=== PATIENT | male | born 1950 | race Caucasian/White ===

== ENCOUNTER 2016-11-27 13:20 | Day surgery (SDC) | payer MEDICARE, BC ==
[2016-11-27 14:15] LABS: Glucose,Whole Blood 146 mg/dL (75-99)
[2016-11-27 14:20] VITALS: PULSE 71; TEMP 98.7
[2016-11-27] MEDS ORDERED: IV FLUID CONTINUATION 1,000 ML IV ONE (16:37)
[2016-11-27] MEDS ORDERED: fentaNYL (PF) 50 MCG/ML 2 ML AMP ONE (16:37)
[2016-11-27] MEDS ORDERED: MIDAZOLAM 2 MG/2 ML VIAL ONE (16:37)
[2016-11-27] MEDS ORDERED: PROPOFOL 10 MG/ML 20 ML VIAL IV ONE (16:37)
--- NOTE | 2016-11-27 17:24 | P.PCN ---
Preoperative Diagnosis: Noninvasive program stimulation/noninvasive EP study Indication for procedure Ischemic cardio myopathy history of ventricular tachycardia 380 ms cycle length Dual-chamber ICD interrogated. No new ventricular tachycardia detected Dual-chamber ICD was reprogrammed to VT detection intervals reduced to 161 beats a minute appropriate antitachycardia pacing cardioversion and defibrillation programmed sensitivity is 0.3 mV Under conscious sedation patient underwent noninvasive program stimulation. Ventricular extra stimulation was performed up to double extrastimuli Ventricular ERP's were 600/20/210, 400/250/less than 204 100/550/260 ms. No ventricular tachycardia induced Burst stimulation was performed from 390 ms down to 260 ms no VT induced The device was then reprogrammed Monitor VT at 150 beats a minute, VT detection of 176 beats a minute appropriate antitachycardia pacing cardioversion and defibrillation VF at 214 beats a minute appropriate antitachycardia pacing and defibrillations programmed Patient tolerated the procedure well without any acute complications Anesthesia: MAC Condition: stable Disposition: same day
[2016-11-27 19:10] VITALS: RESP 20
[2016-11-27 19:15] VITALS: BP 107/78
[2016-11-28] MEDS ORDERED: SODIUM CHLORIDE 0.9% 1,000 ML IV SCH (06:00)
== END 2016-11-27 19:10 | disposition home or self-care (01) ==
LOC: CATHEP 13:20
PROVIDERS: ATTEND Internal Medicine Clinical Cardiac Electrophysiology
DX: I47.1 Supraventricular tachycardia (principal); I25.5 Ischemic cardiomyopathy; I48.2 Chronic atrial fibrillation; I10 Essential (primary) hypertension; I25.10 Atherosclerotic heart disease of native coronary artery without angina pectoris; I50.22 Chronic systolic (congestive) heart failure; E07.9 Disorder of thyroid, unspecified; J44.9 Chronic obstructive pulmonary disease, unspecified; E78.5 Hyperlipidemia, unspecified; E11.9 Type 2 diabetes mellitus without complications; I48.92 Unspecified atrial flutter; I49.5 Sick sinus syndrome; I73.9 Peripheral vascular disease, unspecified; Z79.82 Long term (current) use of aspirin; Z79.01 Long term (current) use of anticoagulants; Z79.4 Long term (current) use of insulin; Z79.899 Other long term (current) drug therapy; I25.2 Old myocardial infarction; Z95.0 Presence of cardiac pacemaker
CPT/HCPCS: 93642; 99152; 99153 ×2; J2250; J3010; J2704

== ENCOUNTER → 2017-03-15 | Outpatient (CLI) | payer MEDICARE, BC ==
[2017-03-15 15:54] LABS: Blood Urea Nitrogen 24 mg/dL (9-20)
--- NOTE | 2017-03-15 16:57 | CT ---
EXAMINATION TYPE: CT lumbar spine w con DATE OF EXAM: 03/15/2017 COMPARISON: 12/07/2014 HISTORY: Chronic low suzan k pain. CT DLP: 2010.2 mGycm Automated exposure control for dose reduction was used. CONTRAST: CT scan of the lumbar is performed with IV Contrast, patient injected with 100ml mL of Omnipaque 300. Enhanced CT of the lumbar spine was performed. Bone and soft tissue window settings are submitted as well as coronal and sagittal reconstructions. FINDINGS: There is redemonstration of surgical fusion of the L3-S1 vertebral levels are seen on the prior exam. Again this creates spray artifact and limited surrounding visualization. Vertebral bodies maintain n ormal vertebral body heights and alignment. Small splenule is seen adjacent to the [place] spleen. Moderate calcific atheromatous changes are appr eciated of the abdominal aorta and its branches. Surgical clips are noted within the gallbladder cricket a. L1-L2: There is a broad-based disc bulge and facet arthropathy creating mild bilateral neural foramin al narrowing. No spinal canal stenosis. L2-L3: There is a small broad-based disc bulge and facet arthropathy creating mild bilateral neural f oraminal narrowing. No spinal canal stenosis. L3-S1: Limited evaluation secondary to extensive spray artifact from the metallic hardware. No gross evidence of spinal canal stenosis. IMPRESSION: 1. Postoperative changes from the L3-S1 levels again creating extensive spray artifact and obscuring visualization. 2. At the L1-L3 vertebral levels there is mild degenerative disc disease crating mild bilateral neura l foraminal narrowing with no evidence of spinal canal stenosis. 3. No evidence of acute fracture, vertebral body height loss or malalignment.
== END | disposition home or self-care (01) ==
LOC: RADCTMAIN 14:40
PROVIDERS: ATTEND Family Medicine
DX: M99.73 Connective tissue and disc stenosis of intervertebral foramina of lumbar region (principal); M51.36 Other intervertebral disc degeneration, lumbar region; Z98.890 Other specified postprocedural states
CPT/HCPCS: 82565; 84520; 72132; 36415; Q9967

== ENCOUNTER → 2017-11-26 | Outpatient (CLI) | payer MEDICARE, BC ==
[2017-11-26 15:33] LABS: HCT 49.7 % (39.0-53.0); HGB 15.9 gm/dL (13.0-17.5); MCH 30.2 pg (25.0-35.0); MCHC 32.1 g/dL (31.0-37.0); Mean Platelet Volume 7.7; Platelet Count 270 k/uL (150-450); RBC 5.29 m/uL (4.30-5.90); RDW 13.8 % (11.5-15.5); WBC 11.3 k/uL (3.8-10.6)
== END | disposition home or self-care (01) ==
LOC: LABPAT 14:51
PROVIDERS: ATTEND Internal Medicine Clinical Cardiac Electrophysiology
DX: Z01.812 Encounter for preprocedural laboratory examination (principal); I25.5 Ischemic cardiomyopathy; I50.22 Chronic systolic (congestive) heart failure
CPT/HCPCS: 36415; 80051; 82565; 82947; 84520; 85027

== ENCOUNTER 2017-12-02 14:08 | Day surgery (SDC) | payer MEDICARE, BC ==
[~2017-12-02 14:08] MED LIST: SODIUM CHLORIDE 0.9% 1,000 ML IV SCH; ceFAZolin 1,000 MG in SODIUM CHLORIDE 0.9% IRRIGATIO 250 ML IRRIGATION ONE; ceFAZolin IN SWFI 2 GM/20 ML SYRINGE IVP ONE
[2017-12-02] MEDS ORDERED: LACTATED RINGERS 1,000 ML IV SCH (14:57)
[2017-12-02 15:14] LABS: Glucose,Whole Blood 149 mg/dL (75-99)
[2017-12-02] MEDS ORDERED: PROPOFOL 10 MG/ML 20 ML VIAL IV ONE (18:28)
[2017-12-02] MEDS ORDERED: MIDAZOLAM 2 MG/2 ML VIAL ONE (18:28)
[2017-12-02] MEDS ORDERED: IV FLUID CONTINUATION 400 ML IV ONE (18:28)
[2017-12-02] MEDS ORDERED: fentaNYL (PF) 50 MCG/ML 2 ML AMP ONE (18:28)
[2017-12-02] MEDS ORDERED: LIDOCAINE 1% INJ 10MG/ML (20 ML MDV) ONE ×2 (18:54→19:10)
[2017-12-02] MEDS ORDERED: LIDOCAINE 1% INJ 10MG/ML (20 ML MDV) SQ ONE (19:11)
[2017-12-02] MEDS ORDERED: ACETAMINOPHEN TAB 325 MG TAB PO PRN (20:00)
[2017-12-02] MEDS ORDERED: ACETAMINOPHEN IV (For NPO) 1,000 MG in EMPTY BAG 1 BAG IVPB ONE (20:00)
[2017-12-02] MEDS ORDERED: ALPRAZolam 0.25 MG TAB PO PRN (20:01)
[2017-12-02] MEDS ORDERED: OMALIZUMAB 150 MG VIAL SQ SCH (20:15)
--- NOTE | 2017-12-02 20:30 | PCN ---
PROCEDURE NOTE This is a 67-year-old male patient with known ischemic cardiomyopathy, ejection fraction 35%. Atrial fibrillation, history of ventricular tachycardia requiring ICD therapies and known coronary artery disease, old [place]. His dual-chamber ICD is at [facility] and he is brought in for an ICD generator change and testing. Patient was brought to the EP lab in a fasting state. Written informed consent was obtained prior to the procedure. The left shoulder area was prepped and draped as per protocol. 1% lidocaine was used for local anesthesia. A 4 cm incision was made directly over the previous surgical site and carried down to the level of the generator. The old generator was explanted. This was a Medtronic generator. The leads were interrogated. The new generator was implanted. This was an Evera XDDR DDD Bi V 1 D1. The atrial lead was a Medtronic model #4568, serial number [id number] and the RV lead was Sprint Quattro 6935, serial number [id number]. The RV pacing thresholds were 0.75 V at 0.4 milliseconds, pacing impedance 418 ohms. RV coil impedance 69 ohms. The old generator was explanted. The new generator was placed in the subfascial pocket the wound after partial capsulectomy. The wound was closed in 3 layers and dressed per protocol. The patient was on Xarelto, DFT testing was performed under anesthesia. Shock and T- wave protocol was used to induce ventricular fibrillation. This was adequately and appropriately detected at least sensitivity and successfully internally defibrillated with a 10 joule shock. The charge time was 2 seconds. Shock impedance 70 ohms. The patient tolerated the procedure well without any acute complications. RESULTS: Successful dual-chamber ICD generator change for ICD at [facility] for normal battery depletion with underlying ischemic cardiomyopathy, old myocardial infarction, congestive heart failure class 2 and DFT at or below 10 joules. MMODL / IJN: [id number] /
[2017-12-02 20:52] LABS: Glucose,Whole Blood 98 mg/dL (75-99)
[2017-12-02] MEDS ORDERED: ATORVASTATIN 80 MG TAB PO SCH (21:00)
[2017-12-02] MEDS ORDERED: INSULIN DETEMIR 100 UNIT/ML 10 ML VIAL SQ SCH (21:00)
[2017-12-02 21:16] VITALS: BMI 38.5
[2017-12-02] MEDS: GLIMEPIRIDE 4 MG TAB PO SCH (21:26)
[2017-12-02] MEDS: INSULIN ASPART 100 UNIT/ML 1 ML 10 ML VIAL SQ SCH (21:27)
[2017-12-02] MEDS: GABAPENTIN 100 MG CAP PO SCH (21:27)
[2017-12-02] MEDS: HYDROcodone/APAP 5-325MG 1 EACH TAB PO PRN (23:31)
[2017-12-03 01:04] VITALS: RESP 18
[2017-12-03] MEDS: ceFAZolin IN SWFI 2 GM/20 ML SYRINGE IVP SCH ×4 (03:34→18:01)
[2017-12-03 06:03] LABS: Glucose,Whole Blood 62 mg/dL (75-99)
[2017-12-03 06:28] LABS: Glucose,Whole Blood 91 mg/dL (75-99)
[2017-12-03] MEDS ORDERED: LEVOTHYROXINE 112 MCG TAB PO SCH (06:30)
[2017-12-03] MEDS: metFORMIN 500 MG TAB PO SCH ×2 (06:48→17:43)
[2017-12-03] MEDS: CARVEDILOL 3.125 MG TAB PO SCH ×2 (06:48→17:43)
[2017-12-03] MEDS: GLIMEPIRIDE 4 MG TAB PO SCH (06:48)
[2017-12-03] MEDS: INSULIN ASPART 100 UNIT/ML 1 ML 10 ML VIAL SQ SCH ×3 (08:35→17:52)
[2017-12-03] MEDS: GABAPENTIN 100 MG CAP PO SCH ×2 (08:39→18:08)
[2017-12-03] MEDS: HYDROcodone/APAP 5-325MG 1 EACH TAB PO PRN ×2 (08:42→14:14)
[2017-12-03] MEDS ORDERED: SPIRONOLACTONE 25 MG TAB PO SCH (09:00)
[2017-12-03] MEDS ORDERED: ASPIRIN 81 MG PO SCH (09:00)
[2017-12-03] MEDS ORDERED: DIGOXIN 125 MCG TAB PO SCH (09:00)
[2017-12-03] MEDS ORDERED: PARoxetine 20 MG TAB PO SCH (09:00)
[2017-12-03] MEDS ORDERED: JARDIANCE 25MG PO SCH (09:00)
[2017-12-03] MEDS ORDERED: LISINOPRIL 5 MG TAB PO SCH (09:00)
[2017-12-03 11:40] LABS: Glucose,Whole Blood 162 mg/dL (75-99)
--- NOTE | 2017-12-03 15:30 | P.DS ---
Providers Attending physician: Danilo Angela Primary care physician: [facility] Course: Patient is doing well from a chronic standpoint. He denies any chest discomfort there is minimal tenderness over the ICD generator site. No bruising minimal oozing and soakage No hematoma On examination Blood pressure 128/88 mmHg pulse rate in the 60s afebrile Breath sounds are clear no rhonchi no crackles Heart sounds are normal no murmurs or gallops or rub line no lower extremity edema Impression Ischemic cardio myopathy, old myocardial infarction, severe LV dysfunction, congestive heart failure class II, permanent atrial fibrillation, status post ICD generator change yesterday Plan Patient may go home after completion of IV antibodies and follow-up in the device clinic in 5 days and follow with me in about 4-6 months Plan - Discharge Summary Discharge Rx Participant: No New Discharge Prescriptions: No Action RX: metFORMIN HCL 1,000 mg PO AC-BID RX: Levothyroxine Sodium [Synthroid] 112 mcg PO DAILY RX: ALPRAZolam [Xanax] 0.25 mg PO BID PRN PRN Reason: Anxiety RX: Aspirin EC [Ecotrin Low Dose] 81 mg PO DAILY RX: Atorvastatin [Lipitor] 80 mg PO HS tab RX: Digoxin [Lanoxin] 125 mcg PO DAILY tab RX: Nitroglycerin Sl Tabs [Nitrostat] 0.4 mg SUBLINGUAL Q5M PRN #0 tab PRN Reason: Chest Pain RX: PARoxetine [Paxil] 20 mg PO DAILY tab RX: Rivaroxaban [Xarelto] 20 mg PO W/SUPPER tab RX: Spironolactone [Aldactone] 12.5 mg PO DAILY tab Lisinopril [Zestril] 5 mg PO DAILY Omalizumab [Xolair] 225 mg SQ DIRECTED Insulin Glargine,Hum.rec.anlog [[place] Solostar] 44 units SQ HS Stiloto 2 sprays NASAL DAILY Empagliflozin [Jardiance] 25 mg PO DAILY RX: HYDROcodone/APAP 10-325MG [[place] 10-325] 1 tab PO Q4-6H PRN PRN Reason: Pain RX: Carvedilol [Coreg] 3.125 mg PO ONCE Gabapentin [Neurontin] 100 mg PO TID Super B 1 tab PO DAILY Insulin Aspart [Novolog] 17 unit SQ QID Glimepiride [Amaryl] 4 mg PO BID Discharge Medication List RX: Levothyroxine Sodium [Synthroid] 112 mcg PO DAILY 06/29/13 [History] RX: metFORMIN HCL 1,000 mg PO AC-BID 06/29/13 [History] RX: ALPRAZolam [Xanax] 0.25 mg PO BID PRN 04/13/14 [History] RX: Aspirin EC [Ecotrin Low Dose] 81 mg PO DAILY 09/29/15 [History] RX: Atorvastatin [Lipitor] 80 mg PO HS tab 10/04/15 [Rx] RX: Digoxin [Lanoxin] 125 mcg PO DAILY tab 10/04/15 [Rx] RX: Nitroglycerin Sl Tabs [Nitrostat] 0.4 mg SUBLINGUAL Q5M PRN #0 tab 10/04/15 [Rx] RX: PARoxetine [Paxil] 20 mg PO DAILY tab 10/04/15 [Rx] RX: Rivaroxaban [Xarelto] 20 mg PO W/SUPPER tab 10/04/15 [Rx] RX: Spironolactone [Aldactone] 12.5 mg PO DAILY tab 10/04/15 [Rx] Lisinopril [Zestril] 5 mg PO DAILY 12/20/15 [History] Omalizumab [Xolair] 225 mg SQ DIRECTED 01/17/16 [History] Insulin Glargine,Hum.rec.anlog [[place] Solostar] 44 units SQ HS 04/10/16 [ History] Stiloto 2 sprays NASAL DAILY 04/10/16 [History] Empagliflozin [Jardiance] 25 mg PO DAILY 04/24/16 [History] RX: HYDROcodone/APAP 10-325MG [[place] 10-325] 1 tab PO Q4-6H PRN 10/23/16 [ History] RX: Carvedilol [Coreg] 3.125 mg PO ONCE 11/27/16 [History] Gabapentin [Neurontin] 100 mg PO TID 08/13/17 [History] Super B 1 tab PO DAILY 08/13/17 [History] Glimepiride [Amaryl] 4 mg PO BID 11/26/17 [History] Insulin Aspart [Novolog] 17 unit SQ QID 11/26/17 [History]
[2017-12-03 15:50] VITALS: BP 123/76; PULSE 67; TEMP 98.2
[2017-12-03 17:08] LABS: Glucose,Whole Blood 136 mg/dL (75-99)
[2017-12-03] MEDS ORDERED: RIVAROXABAN 10 MG TAB PO SCH (17:30)
== END 2017-12-03 18:34 | disposition home or self-care (01) ==
LOC: CATHEP 14:08 → 3SCARD 19:43 → CATHEP 12-03 18:34
PROVIDERS: ATTEND Internal Medicine Clinical Cardiac Electrophysiology
DX: I25.5 Ischemic cardiomyopathy (principal); I25.10 Atherosclerotic heart disease of native coronary artery without angina pectoris; I11.0 Hypertensive heart disease with heart failure; I50.22 Chronic systolic (congestive) heart failure; E78.5 Hyperlipidemia, unspecified; E11.51 Type 2 diabetes mellitus with diabetic peripheral angiopathy without gangrene; I48.2 Chronic atrial fibrillation; I25.2 Old myocardial infarction; I49.5 Sick sinus syndrome; Z79.01 Long term (current) use of anticoagulants; Z79.82 Long term (current) use of aspirin; Z79.4 Long term (current) use of insulin; Z79.899 Other long term (current) drug therapy
CPT/HCPCS: 93641; 33263; C1721; J0690 ×3; J2001; J0131

== ENCOUNTER 2018-01-27 12:55 | Emergency (ER) | payer OTHER, MEDICARE, BC ==
[2018-01-27 13:25] VITALS: BP 132/90; PULSE 82; RESP 18; TEMP 98.2
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
== END 2018-01-27 15:15 | disposition home or self-care (01) ==
LOC: EC 12:55
DX: S62.307A Unspecified fracture of fifth metacarpal bone, left hand, initial encounter for closed fracture (principal); J44.9 Chronic obstructive pulmonary disease, unspecified; I11.0 Hypertensive heart disease with heart failure; I50.9 Heart failure, unspecified; E11.9 Type 2 diabetes mellitus without complications; E03.9 Hypothyroidism, unspecified; I25.2 Old myocardial infarction; F41.9 Anxiety disorder, unspecified; Z79.4 Long term (current) use of insulin; Z79.82 Long term (current) use of aspirin; Z79.899 Other long term (current) drug therapy; Z95.0 Presence of cardiac pacemaker; V43.52XA Car driver injured in collision with other type car in traffic accident, initial encounter; Y92.410 Unspecified street and highway as the place of occurrence of the external cause
CPT/HCPCS: 29125; 99284

== ENCOUNTER → 2019-03-31 | Outpatient (CLI) | payer MEDICARE, BC | LOC: LABWHC1 12:28 | PROVIDERS: ATTEND Nurse Practitioner Adult Health | DX: Z51.81 Encounter for therapeutic drug level monitoring (principal); I48.21 Permanent atrial fibrillation | CPT/HCPCS: 36415; 80162 ==

== ENCOUNTER 2019-07-30 05:58 | Day surgery (SDC) | payer MEDICARE, BC ==
[2019-07-29 09:21] VITALS: BMI 39.8
[2019-07-30] MEDS ORDERED: SODIUM CHLORIDE 0.9% 1,000 ML IV SCH (06:12)
[2019-07-30 06:51] LABS: Glucose,Whole Blood 138 mg/dL (75-99)
[2019-07-30 07:11] VITALS: BP 146/68; PULSE 67; RESP 16; TEMP 99
[2019-07-30] MEDS ORDERED: SODIUM CHLORIDE 0.9% 500 ML 500 ML IV ONE (07:23)
[2019-07-30] MEDS ORDERED: IOPAMIDOL-250 50ML BTL IV ONE ×2 (07:32)
[2019-07-30 07:58] LABS: HCT 43.4 % (39.0-53.0); HGB 14.4 gm/dL (13.0-17.5); MCH 31.4 pg (25.0-35.0); MCHC 33.1 g/dL (31.0-37.0); MCV 94.9 fL (80.0-100.0); Mean Platelet Volume 8.9; Platelet Count 267 k/uL (150-450); RBC 4.57 m/uL (4.30-5.90); RDW 13.4 % (11.5-15.5); WBC 11.1 k/uL (3.8-10.6)
--- NOTE | 2019-07-30 08:03 | P.PCN ---
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 It appears that there is flow of dye past the stenosis especially superior to the leads and it may be possible to access the central circulation via this route Undoubtedly venoplasty will have to be performed to place and LV lead sheath Right upper extremity venogram 10 cc of IV dye injected and mild stenosis noted at the junction of the axillary innominate vein Patent SVC Cinefluoroscopy of the leads and the generator performed Patient has an old RV pacing lead which is appended He is a dual-chamber ICD system. ICD lead in the septum Atrial lead in stable position No fractures or breaks noted Plan Upgrade to a biventricular system Attempt access via the left side If successful venoplasty to follow Placed either His bundle lead or pacing lead in the LV If this fails then right-sided LV/His bundle lead placement Tunnel the lead across the chest anteriorly to the left side Generator placed in the left side
[2019-07-30 08:17] LABS: African American GFR (CKD) >90 (>60 ml/min/1.73 sqM); Anion Gap 10 mmol/L; Blood Urea Nitrogen 21 mg/dL (9-20); Calcium 9.3 mg/dL (8.4-10.2); Carbon Dioxide 23 mmol/L (22-30); Chloride 108 mmol/L (98-107); Cholesterol 181 mg/dL (<200); Glucose 144 mg/dL (74-99); HDL Cholesterol 39 mg/dL (40-60); LDL Cholesterol,Calculated 112 mg/dL (0-99); Non-African American GFR(CKD) 79 (>60 ml/min/1.73 sqM); Potassium 4.6 mmol/L (3.5-5.1); Sodium 141 mmol/L (137-145); Triglycerides 151 mg/dL (<150)
== END 2019-07-30 09:05 | disposition home or self-care (01) ==
LOC: CATHEP 05:58
PROVIDERS: ATTEND Internal Medicine Clinical Cardiac Electrophysiology
DX: I87.1 Compression of vein (principal); I25.5 Ischemic cardiomyopathy; I44.2 Atrioventricular block, complete; I25.10 Atherosclerotic heart disease of native coronary artery without angina pectoris; I50.22 Chronic systolic (congestive) heart failure; I11.0 Hypertensive heart disease with heart failure; I49.5 Sick sinus syndrome; I73.9 Peripheral vascular disease, unspecified; I25.2 Old myocardial infarction; E11.9 Type 2 diabetes mellitus without complications; E78.5 Hyperlipidemia, unspecified; Z79.82 Long term (current) use of aspirin; Z79.02 Long term (current) use of antithrombotics/antiplatelets; Z79.4 Long term (current) use of insulin; Z79.890 Hormone replacement therapy; Z79.01 Long term (current) use of anticoagulants; Z79.899 Other long term (current) drug therapy; I48.21 Permanent atrial fibrillation; Z95.810 Presence of automatic (implantable) cardiac defibrillator
CPT/HCPCS: 36005; 75820; 80061; 80048; 84443; 82607; 85027; 82306; Q9966

== ENCOUNTER 2019-08-25 05:42 | Day surgery (SDC) | payer MEDICARE, BC ==
[2019-08-19 17:36] VITALS: BMI 39.8
[~2019-08-25 05:42] MED LIST changes: -ceFAZolin 1,000 MG in SODIUM CHLORIDE 0.9% IRRIGATIO 250 ML IRRIGATION ONE; -ceFAZolin IN SWFI 2 GM/20 ML SYRINGE IVP ONE
[2019-08-25] MEDS ORDERED: VANCOMYCIN 1,000 MG in SODIUM CHLORIDE 0.9% 250 ML IVPB ONE (06:00)
[2019-08-25] MEDS ORDERED: SODIUM CHLORIDE 0.9% 1,000 ML IV SCH (06:00)
[2019-08-25] MEDS ORDERED: ceFAZolin 1,000 MG in SODIUM CHLORIDE 0.9% IRRIGATIO 250 ML IRRIGATION ONE (06:00)
[2019-08-25 06:16] LABS: Glucose,Whole Blood 165 mg/dL (75-99)
[2019-08-25] MEDS ORDERED: LIDOCAINE 1% INJ 10MG/ML (20 ML MDV) ONE ×2 (08:25→08:51)
[2019-08-25] MEDS ORDERED: LIDOCAINE 1% INJ 10MG/ML (20 ML MDV) SQ ONE (08:45)
[2019-08-25] MEDS ORDERED: ACETAMINOPHEN IV (For NPO) 1,000 MG in EMPTY BAG 1 BAG IVPB ONE (10:28)
[2019-08-25] MEDS ORDERED: ACETAMINOPHEN TAB 325 MG TAB PO PRN (10:28)
--- NOTE | 2019-08-25 10:48 | P.PRLE ---
RE: Jnoathan Escobar Dear Morales Jonathan Escobar underwent upgrade to a biventricular ICD for cardio myopathy, ischemic, with worsening systolic congestive heart failure increasing RV pacing percentage well above 40% despite medical treatment I will now increase his metoprolol succinate to 50 mg twice daily and change lisinopril timing to noontime He will continue all his other medications including xarelto Thank you for entrusting me with the care of the patient Warm regards Sincerely Danilo Angela
--- NOTE | 2019-08-25 10:53 | P.DS ---
Providers Attending physician: Danilo Angela Primary care physician: [facility] Course: Patient underwent upgrade to a biventricular ICD successfully A Metronic biventricular ICD was implanted, IV vancomycin and IV Kefzol given Medtronic model #3830 was implanted, excellent thresholds and narrowing of the QRS, selective He has underlying ischemic cardiomyopathy ejection fraction between 40-45% Worsening systolic congestive heart failure Increasing RV pacing percentage between 40-70% at least Underlying persistent atrial fibrillation On guideline directed medical treatment Plan IV antibiotics Chest x-ray Device interrogation and discharge home later today Follow up on Saturday in the office Plan - Discharge Summary New Discharge Prescriptions: New Metoprolol Succinate [Toprol XL] 50 mg PO BID #180 tab Discontinued Metoprolol Tartrate [Lopressor] 50 mg PO DAILY No Action metFORMIN HCL 1,000 mg PO AC-BID Levothyroxine Sodium [Synthroid] 112 mcg PO DAILY ALPRAZolam [Xanax] 0.25 mg PO BID PRN PRN Reason: Anxiety Aspirin EC [Ecotrin Low Dose] 81 mg PO DAILY Atorvastatin [Lipitor] 80 mg PO HS tab Nitroglycerin Sl Tabs [Nitrostat] 0.4 mg SUBLINGUAL Q5M PRN #0 tab PRN Reason: Chest Pain PARoxetine [Paxil] 20 mg PO DAILY tab Rivaroxaban [Xarelto] 20 mg PO W/SUPPER tab Spironolactone [Aldactone] 12.5 mg PO DAILY tab Lisinopril [Zestril] 5 mg PO DAILY Omalizumab [Xolair] 225 mg SQ Q14D Stiloto 2 sprays NASAL DAILY HYDROcodone/APAP 10-325MG [[place] 10-325] 1 tab PO QID Gabapentin [Neurontin] 100 mg PO TID Insulin Glargine,Hum.rec.anlog [Basaglar Kwikpen U-100] 44 unit SQ HS Digoxin [Digitek] 125 mcg PO DAILY Glimepiride [Amaryl] 4 mg PO BID INSULIN LISPRO (humaLOG) [humaLOG] 17 units SQ AC-TID Discharge Medication List Levothyroxine Sodium [Synthroid] 112 mcg PO DAILY 06/29/13 [History] metFORMIN HCL 1,000 mg PO AC-BID 06/29/13 [History] ALPRAZolam [Xanax] 0.25 mg PO BID PRN 04/13/14 [History] Aspirin EC [Ecotrin Low Dose] 81 mg PO DAILY 09/29/15 [History] Atorvastatin [Lipitor] 80 mg PO HS tab 10/04/15 [Rx] Nitroglycerin Sl Tabs [Nitrostat] 0.4 mg SUBLINGUAL Q5M PRN #0 tab 10/04/15 [Rx] PARoxetine [Paxil] 20 mg PO DAILY tab 10/04/15 [Rx] Rivaroxaban [Xarelto] 20 mg PO W/SUPPER tab 10/04/15 [Rx] Spironolactone [Aldactone] 12.5 mg PO DAILY tab 10/04/15 [Rx] Lisinopril [Zestril] 5 mg PO DAILY 12/20/15 [History] Omalizumab [Xolair] 225 mg SQ Q14D 01/17/16 [History] Stiloto 2 sprays NASAL DAILY 04/10/16 [History] HYDROcodone/APAP 10-325MG [[place] 10-325] 1 tab PO QID 10/23/16 [History] Gabapentin [Neurontin] 100 mg PO TID 08/13/17 [History] Digoxin [Digitek] 125 mcg PO DAILY 07/29/19 [History] Glimepiride [Amaryl] 4 mg PO BID 07/29/19 [History] Insulin Glargine,Hum.rec.anlog [Basaglar Kwikpen U-100] 44 unit SQ HS 07/29/19 [History] INSULIN LISPRO (humaLOG) [humaLOG] 17 units SQ AC-TID 08/19/19 [History] Metoprolol Succinate [Toprol XL] 50 mg PO BID #180 tab 08/25/19 [Rx] Follow up Appointment(s)/Referral(s): Danilo Angela MD [STAFF PHYSICIAN] - 1 Week (Device clinic follow-up this Saturday Follow Dr. Angela in 3 months) Activity/Diet/Wound Care/Special Instructions: PATIENT EDUCATION MATERIAL Instructions following a heart rhythm device implant. 1. Keep dressing DRY for 5 DAYS. You may cover the area with Saran or Cling Wrap, prior to a shower. 2. The dressing will be removed in the Device Clinic at [facility]. Absorbable sutures were used to close the wound. 3. Avoid raising the left arm above the shoulder level. 4 week restriction 4. Avoid arm movements, like backscratching, rubbing the head, or pulling on a cord. 4 weeks restriction 5. Gentle range of motion movements of the shoulder, closest to the incision should be performed to avoid a frozen shoulder. (Pendulum exercises of the shoulder) 6. The opposite arm may be used freely. 7. Avoid driving for 7 days. 8. Avoid activities such as golfing, swimming, weed whacking, lifting more than 10 pounds weight, bowling, gymnastics and weight training/lifting. (6 weeks restriction) 9. Activities such as wood chopping with an axe, pull-ups in the gymnasium, power lifting, arc-welding, being close to home induction cooktops will always be a problem. 10. Arm sling is only a reminder not to raise the arm above the head. You do not need to keep the arm completely immobilized. Your free to move the arm and use it and for normal activities. In case of any problems, please call [facility], [place], @ [phone], Attention: Device Clinic Device clinic follow-up in 5 days Follow-up with primary relations specialist, Dr. Angela in 3 months
[2019-08-25 11:02] LABS: Glucose,Whole Blood 148 mg/dL (75-99)
[2019-08-25 11:37] VITALS: RESP 14; TEMP 97.9
[2019-08-25] MEDS: INSULIN ASPART (NovoLOG) 100 UNIT/ML VIAL SQ SCH ×2 (11:41→17:31)
--- NOTE | 2019-08-25 12:34 | PCN ---
PROCEDURE NOTE Mr. Escobar is a 69-year-old male patient who has ischemic cardiomyopathy with worsening systolic congestive heart failure despite medical treatment. He has underlying persistent atrial fibrillation. His RV pacing percentage is increasing well above 40% and is closer to 70%. A venogram was previously performed and showed some patency of the left axillary vein. He is brought to the EP lab in a fasting state. Written informed consent was obtained prior to the procedure. The entire chest was prepared for either a left-sided or right- sided axillary approach to implant the biventricular lead. The left side was started first. An incision was made about 4 cm and carried down to the level of the capsule. Partial capsulectomy was performed. The device was explanted and the axillary vein access was performed. The lateral axillary vein access was performed and the angioplasty wire was placed via this vein into the right atrium and IVC. Following that, a short sheath was placed and thereafter a long sheath. A Medtronic model 3830 lead, 69 cm in length and serial #[id number] was placed and selective capture was noted between 4 and 5 V at 1 millisecond while nonselective capture at further high outputs. The lead was screwed in and the sheath was removed. The threshold for loss of selective capture was 1.3 V at 1 millisecond. R waves 1.8 millisecond, 1.8 mV and pacing impedance 589 ohms. The RV lead was interrogated. The R-waves 13.6 mV, pacing impedance 456 ohms, pacing threshold 0.75 V at 0.4 milliseconds. The new generator was implanted. This was a Medtronic biventricular ICD model #DTMBD1, serial #[id number]. The lead and generator were then placed in subfascial pocket. The wound was closed in three layers and dressed per protocol. RESULT: Successful upgrade to a biventricular ICD for management of heart failure symptoms, in the setting of ischemic cardiomyopathy, ejection fraction 40%-45% with worsening RV pacing percentage well above 40% despite guideline-directed medical treatment. Selective capture was noted with excellent threshold at 1.3 V at 1 millisecond and normalization of the QRS. The device was programmed for LV port pacing with selective capture, appropriate antitachycardia pacing cardioversion defibrillations were programmed for VT and VF therapy. Successful upgrade to a biventricular ICD with selective pacing and normalization of the QRS. MMODL / IJN: [id number] /
[2019-08-25 14:57] VITALS: BP 136/74; PULSE 62
--- NOTE | 2019-08-25 15:41 | XR ---
EXAMINATION TYPE: XR chest 2V DATE OF EXAM: 08/25/2019 COMPARISON: 09/30/2015 INDICATION: Lead placement check TECHNIQUE: Frontal and lateral views of the chest are obtained. FINDINGS: The heart size is normal. The pulmonary vasculature is normal. The lungs are clear. No pneumothorax is evident. Pacemaker lead has been placed adjacent to prior IMPRESSION: 1. No pneumothorax post lead revision.
[2019-08-25] MEDS ORDERED: GABAPENTIN 100 MG CAP PO SCH (16:00)
[2019-08-25 16:59] LABS: Glucose,Whole Blood 280 mg/dL (75-99)
[2019-08-25] MEDS ORDERED: metFORMIN 500 MG TAB PO SCH (17:30)
[2019-08-25] MEDS ORDERED: RIVAROXABAN 20 MG TAB PO SCH (17:30)
[2019-08-25] MEDS ORDERED: ATORVASTATIN 80 MG TAB PO SCH (21:00)
[2019-08-25] MEDS ORDERED: INSULIN DETEMIR (LEVEMIR) 100 UNIT/ML SYR SQ SCH (21:00)
[2019-08-25] MEDS ORDERED: GLIMEPIRIDE 4 MG TAB PO SCH (21:00)
[2019-08-26] MEDS ORDERED: LEVOTHYROXINE 112 MCG TAB PO SCH (06:30)
[2019-08-26] MEDS ORDERED: PARoxetine 20 MG TAB PO SCH (09:00)
[2019-08-26] MEDS ORDERED: ASPIRIN 81 MG PO SCH (09:00)
[2019-08-26] MEDS ORDERED: DIGOXIN 125 MCG TAB PO SCH (09:00)
[2019-08-26] MEDS ORDERED: SPIRONOLACTONE 25 MG TAB PO SCH (09:00)
[2019-08-26] MEDS ORDERED: lisinopriL 5 MG TAB PO SCH (09:00)
[2019-09-01] MEDS ORDERED: OMALIZUMAB SQ SCH (09:00)
== END 2019-08-25 18:40 | disposition home or self-care (01) ==
LOC: CATHEP 05:42 → 1SOBS 11:05 → CATHEP 18:40
PROVIDERS: ATTEND Internal Medicine Clinical Cardiac Electrophysiology
DX: I48.21 Permanent atrial fibrillation (principal); I25.5 Ischemic cardiomyopathy; I49.5 Sick sinus syndrome; I25.10 Atherosclerotic heart disease of native coronary artery without angina pectoris; I34.0 Nonrheumatic mitral (valve) insufficiency; I11.0 Hypertensive heart disease with heart failure; I50.22 Chronic systolic (congestive) heart failure; I25.2 Old myocardial infarction; I47.1 Supraventricular tachycardia; I73.9 Peripheral vascular disease, unspecified; J44.9 Chronic obstructive pulmonary disease, unspecified; E11.9 Type 2 diabetes mellitus without complications; E78.5 Hyperlipidemia, unspecified; Z86.73 Personal history of transient ischemic attack (TIA), and cerebral infarction without residual deficits; Z79.4 Long term (current) use of insulin; Z79.01 Long term (current) use of anticoagulants; Z79.82 Long term (current) use of aspirin; Z79.890 Hormone replacement therapy; Z79.899 Other long term (current) drug therapy
CPT/HCPCS: 33249; 33225; 71046; C1769 ×2; C1892; C1898; C1882; J3370; J0690 ×2; J2001

== ENCOUNTER → 2020-02-01 | Outpatient (CLI) | payer MEDICARE, BC ==
--- NOTE | 2020-02-01 12:11 | US ---
EXAMINATION TYPE: US venous doppler duplex LE RT DATE OF EXAM: 02/01/2020 11:58 AM COMPARISON: NONE CLINICAL HISTORY: M79.661 pain in RLL. SIDE PERFORMED: Right TECHNIQUE: The lower extremity deep venous system is examined utilizing real time linear array sonog abena with graded compression, doppler sonography and color-flow sonography. VESSELS IMAGED: Common Femoral Vein Deep Femoral Vein Greater Saphenous Vein * Femoral Vein Popliteal Vein Small Saphenous Vein * (* superficial vessels) Right Leg: Negative for DVT IMPRESSION: No evidence for DVT at this time.
== END | disposition home or self-care (01) ==
LOC: RADUSWWP 11:31
PROVIDERS: ATTEND Family Medicine
DX: M79.661 Pain in right lower leg (principal)

== ENCOUNTER 2020-06-20 09:43 | Day surgery (SDC) | payer MEDICARE, BC ==
[~2020-06-20 09:43] MED LIST changes: +LIDOCAINE 1% (10MG/ML) FOR IV START INTRADERMA PRN; -SODIUM CHLORIDE 0.9% 1,000 ML IV SCH
[2020-06-20 10:34] VITALS: TEMP 97.2
[2020-06-20] MEDS: LACTATED RINGERS 1,000 ML IV SCH ×2 (10:42→11:34)
[2020-06-20] MEDS ORDERED: PROPOFOL 10 MG/ML 20 ML VIAL IV ONE (11:36)
[2020-06-20] MEDS ORDERED: LIDOCAINE 1% INJ 10MG/ML (20 ML MDV) ONE (11:36)
--- NOTE | 2020-06-20 11:57 | P.PCN ---
Date of Procedure: 06/20/20 Procedure(s) Performed: BRIEF HISTORY: Patient is a 69-year-old pleasant 8 male scheduled for an elective colonoscopy as a part of positive cologuard. PROCEDURE PERFORMED: Colonoscopy and polypectomy. PREOPERATIVE DIAGNOSIS: Positive cologuard. IV sedation per Anesthesia. PROCEDURE: After informed consent was obtained, the patient, was brought into the endoscopy unit. IV sedation was administered by Anesthesia under continuous monitoring. Digital rectal examination was normal. Initially the Olympus CF-160 flexible video colonoscope was then inserted in the rectum, gradually advanced into the cecum without any difficulty. Careful examination was performed as the scope was gradually being withdrawn. Ileocecal valve and the appendiceal orifice were visualized and appeared normal. Prep was excellent. Mucosa of the cecum, ascending colon, transverse colon, was normal. In the descending colon there was a 1 cm polyp removed by snare polypectomy. Rest of the descending colon, sigmoid colon, and rectum appeared normal. The proximal rectum there was a 1 m polyp removed by snare polypectomy. Retroflexion was performed in the rectum and no lesions were seen. The patient tolerated the procedure well. IMPRESSION: 1 cm descending colon polyp status post polypectomy 1 cm rectal polyp status post polypectomy RECOMMENDATIONS: Findings of this examination were discussed with the patient as well as his family. Was advised to follow with the biopsy results. If the biopsy shows an adenoma he can have a repeat colonoscopy in 3 years.
[2020-06-20 12:00] VITALS: PULSE 83
[2020-06-20 12:21] VITALS: BP 166/80; RESP 20
== END 2020-06-20 12:25 | disposition home or self-care (01) ==
LOC: ORWHC2ENDO 09:43
PROVIDERS: ATTEND Internal Medicine Gastroenterology
DX: D12.2 Benign neoplasm of ascending colon (principal); K62.1 Rectal polyp; R19.5 Other fecal abnormalities; I25.2 Old myocardial infarction; I11.0 Hypertensive heart disease with heart failure; I50.9 Heart failure, unspecified; E78.5 Hyperlipidemia, unspecified; E11.9 Type 2 diabetes mellitus without complications; E07.9 Disorder of thyroid, unspecified; Z86.73 Personal history of transient ischemic attack (TIA), and cerebral infarction without residual deficits; Z79.01 Long term (current) use of anticoagulants; Z79.82 Long term (current) use of aspirin; Z79.84 Long term (current) use of oral hypoglycemic drugs; Z79.899 Other long term (current) drug therapy; Z95.0 Presence of cardiac pacemaker
CPT/HCPCS: 88305; 45385; J2001; J2704

== ENCOUNTER → 2020-06-23 | Day surgery (SDC) | payer MEDICARE, BC ==
[2020-06-22 10:35] VITALS: BMI 39.1
[~2020-06-23] MED LIST changes: +IOPAMIDOL-370 50ML BTL INJ ONE; -LIDOCAINE 1% (10MG/ML) FOR IV START INTRADERMA PRN; +SODIUM CHLORIDE 0.9% 1,000 ML IV SCH; +SODIUM CHLORIDE 0.9% 500 ML 500 ML IV ONE
[2020-06-23 06:41] VITALS: RESP 16; TEMP 97.8
[2020-06-23 06:44] LABS: Glucose,Whole Blood 142 mg/dL (75-99)
--- NOTE | 2020-06-23 07:44 | P.EPPROC ---
- EP Procedure Note Electrophysiology Procedure Note: Diagnosis Recent non-capture of the His bundle lead Patient has a BiV ICD. His bundle lead was implanted in August 2019 Cinefluoroscopy of the leads Complete dislodgment of the His bundle lead Left upper extremity venogram Patent extrathoracic axillary vein with mild stenosis in the axillary SVC junction there is passage of dye across Impression Late dislodgment of the His bundle lead Plan Extraction of the His bundle lead and placement of an LV lead
[2020-06-23 08:06] VITALS: BP 152/73; PULSE 68
== END | disposition home or self-care (01) ==
LOC: CATHEP 06:05
PROVIDERS: ATTEND Internal Medicine Clinical Cardiac Electrophysiology
DX: T82.110A Breakdown (mechanical) of cardiac electrode, initial encounter (principal); I25.10 Atherosclerotic heart disease of native coronary artery without angina pectoris; I25.5 Ischemic cardiomyopathy; I48.19 Other persistent atrial fibrillation; Z20.822 Contact with and (suspected) exposure to COVID-19; E11.9 Type 2 diabetes mellitus without complications; I11.0 Hypertensive heart disease with heart failure; I50.22 Chronic systolic (congestive) heart failure; E78.5 Hyperlipidemia, unspecified; I25.2 Old myocardial infarction; I34.0 Nonrheumatic mitral (valve) insufficiency; M79.89 Other specified soft tissue disorders; R53.82 Chronic fatigue, unspecified; Z79.82 Long term (current) use of aspirin; Z79.4 Long term (current) use of insulin; Z79.899 Other long term (current) drug therapy
CPT/HCPCS: 36005; 75820; 87635; Q9967

== ENCOUNTER 2020-06-30 09:16 | Day surgery (SDC) | payer MEDICARE, BC ==
[2020-06-29 10:46] VITALS: BMI 41.1
[~2020-06-30 09:16] MED LIST changes: -IOPAMIDOL-370 50ML BTL INJ ONE; -SODIUM CHLORIDE 0.9% 500 ML 500 ML IV ONE; +VANCOMYCIN 2,000 MG in SODIUM CHLORIDE 0.9% 500 ML 500 ML IVPB PRN; +ceFAZolin 1 GM in SODIUM CHLORIDE 0.9% 250 ML IRRIGATION PRN
[2020-06-30 09:41] LABS: Glucose,Whole Blood 202 mg/dL (75-99)
[2020-06-30 10:02] LABS: Basophils # (A) 0.1 k/uL (0-0.2); Basophils % (A) 1 %; Eosinophils # (A) 0.2 k/uL (0-0.7); Eosinophils % (A) 1 %; HCT 42.3 % (39.0-53.0); Lymphocytes # (A) 2.4 k/uL (1.0-4.8); Lymphocytes % (A) 17 %; MCH 31.5 pg (25.0-35.0); MCHC 33.2 g/dL (31.0-37.0); MCV 94.9 fL (80.0-100.0); Mean Platelet Volume 8.5; Monocytes # (A) 0.7 k/uL (0-1.0); Monocytes % (A) 5 %; Neutrophils # (A) 10.9 k/uL (1.3-7.7); Neutrophils % (A) 75 %; Platelet Count 293 k/uL (150-450); RBC 4.45 m/uL (4.30-5.90); WBC 14.4 k/uL (3.8-10.6)
[2020-06-30 11:07] LABS: African American GFR (CKD) >90 (>60 ml/min/1.73 sqM); Anion Gap 4 mmol/L; Blood Urea Nitrogen 19 mg/dL (9-20); Calcium 8.8 mg/dL (8.4-10.2); Carbon Dioxide 25 mmol/L (22-30); Chloride 107 mmol/L (98-107); Glucose 206 mg/dL (74-99); Non-African American GFR(CKD) 82 (>60 ml/min/1.73 sqM); Sodium 136 mmol/L (137-145)
[2020-06-30 11:17] LABS: Potassium 5.7 mmol/L (3.5-5.1)
[2020-06-30] MEDS: INSULIN ASPART (NovoLOG) 100 UNIT/ML VIAL SQ SCH ×4 (11:33→20:51)
[2020-06-30] MEDS ORDERED: ETOMIDATE 2 MG/ML 10 ML VIAL ONE ×2 (13:41→14:12)
[2020-06-30] MEDS ORDERED: LIDOCAINE 1% INJ 10MG/ML (20 ML MDV) ONE ×2 (13:41→14:25)
[2020-06-30] MEDS ORDERED: PHENYLEPHRINE-0.9% NACL SYG 1,000 MCG/10 ML SYRINGE ONE (13:41)
[2020-06-30] MEDS ORDERED: fentaNYL (PF) 50 MCG/ML 2 ML AMP ONE (13:41)
[2020-06-30] MEDS ORDERED: SUCCINYLCHOLINE CHLORIDE 100 MG/5 ML SYR IV ONE (13:41)
[2020-06-30] MEDS ORDERED: ROCURONIUM 10 MG/ML (5 ML VIAL) IV ONE (13:41)
[2020-06-30] MEDS ORDERED: NEOSTIGMINE 1 MG/ML 10 ML VIAL ONE (13:41)
[2020-06-30] MEDS ORDERED: GLYCOPYRROLATE 0.2 MG/ML 2 ML VIAL ONE (13:41)
[2020-06-30] MEDS: ceFAZolin 3 GM in SODIUM CHLORIDE 0.9% 100 ML IVPB PRN ×2 (14:16→14:30)
[2020-06-30] MEDS ORDERED: LIDOCAINE 1% INJ 10MG/ML (20 ML MDV) SQ ONE ×2 (14:35→15:54)
[2020-06-30] MEDS ORDERED: IOPAMIDOL-370 50ML BTL INJ ONE (15:55)
[2020-06-30] MEDS ORDERED: ACETAMINOPHEN TAB 325 MG TAB PO PRN (16:43)
[2020-06-30] MEDS ORDERED: ALPRAZolam 0.25 MG TAB PO PRN (16:45)
--- NOTE | 2020-06-30 17:04 | P.PRLE ---
RE: Jonathan Escobar Dear Morales Castillo underwent upgrade to a biventricular ICD with LV lead placement. The original His bundle lead dislodged 3-4 months after original implant despite being in excellent position with excellent thresholds It is still unclear to me how this lead dislodged months after displaying excellent function Anyways, Jonathan did well and the new LV lead has been placed in the posterior lateral vein and is functioning normally. He is a new biventricular ICD generator My plan is to continue his current medications without any changes Thank you for entrusting me with the care of the patient Warm regards Sincerely Danilo Angela
[2020-06-30 17:05] LABS: Glucose,Whole Blood 134 mg/dL (75-99)
--- NOTE | 2020-06-30 17:07 | P.PCN ---
Preoperative Diagnosis: Increase procedure services This was a long procedure involving making a new subfascial pocket more caudally and medially The LV lead was extracted Access was obtained in the second rib level of the extrathoracic axillary vein and seasonal dilated patient had to be performed to allow for LV lead sheath was placed Coronary sinus access difficult and multiple sheaths had to be placed and used to obtaining access Initially only the proximal coronary sinus the accessed but subsequently we had to use multiple different in her sheaths and the guidewire to finally get access into the distal coronary sinus On account of high pressures veins are not very well visible on venography Very diminutive anterolateral veins were identified with venography The posterior lateral vein was large and had to be subselected since its origin was very close to the coronary sinus os Medtronic screw-in lead was screwed in to this LV branch Excellent thresholds were obtained Diaphragmatic stimulation noted very distally and poor 1 but not in the other, more proximal poles
--- NOTE | 2020-06-30 17:27 | XR ---
EXAMINATION: XR chest 1V portable DATE AND TIME: 06/30/2020 5:19 PM CLINICAL INDICATION: PHH; Lead placement check TECHNIQUE: Portable AP upright COMPARISON: 08/25/2019 FINDINGS: Left subclavian cardiac pacemaker appears intact. EKG leads noted. The lungs are clear. The pleural spaces are negative. The cardiac silhouette is not enlarged. The remainder of the mediastinal silhouette is unremarkable. The skeletal structures and soft tissues are negative for acute findings. IMPRESSION: No acute radiographic process.
[2020-06-30] MEDS ORDERED: RIVAROXABAN 20 MG TAB PO SCH (17:30)
--- NOTE | 2020-06-30 17:41 | CE ---
CARDIAC ELECTROPHYSIOLOGY REPORT Jonathan Escobar is a 69-year-old male patient who has severe cardiomyopathy and congestive heart failure and underlying permanent atrial fibrillation. He had undergone upgrade to a biventricular ICD with His bundle pacing. The His bundle lead was in excellent position with excellent thresholds at the three-month. However, when he came back for a follow-up visit after 4 months, he had noncapture of the His bundle lead. Cinefluoroscopy revealed dislodgement of the His bundle lead. He is brought in for extraction of the His bundle lead and implantation of a new LV lead. Patient was brought to the EP lab in a fasting state. Written informed consent was obtained prior to the procedure. The left shoulder area was prepped and draped as per protocol. Procedure was performed under general anesthesia. The patient received IV vancomycin and later Kefzol. An incision was made directly over the previous surgical site. Scar tissue was excised and the generator was explanted. The His bundle lead was freed from the surrounding soft tissue and was extracted with manual traction. An encircling suture was placed around its insertion site to prevent backbleeding. Venous access was obtained at the level of the second rib, the extrathoracic axillary vein, and the angioplasty wire was placed in the vein and passed into the central circulation. Following that, venoplasty of the vein was performed since there was stenosis at the site that was previously documented. Progressively larger dilators were used up to 10-Montserratian, and a 9-Montserratian sheath was then placed. Following that, LV sheath was placed. Different LV sheaths were attempted, and the coronary sinus was finally accessed after some difficulty. A venogram was performed and the position of the coronary sinus sheath was confirmed. However, the coronary sinus catheter would not go past the proximal one third, and therefore a long wire had to be placed through the sheath and sheath was then advanced distally over the dilator and the wire. Once that was performed, a subselecting sheath was used. Two different subselecting sheaths were used to cannulate the lateral and the anterolateral veins. However, these were very diminutive and suboptimal for LV lead placement. The subselecting sheath was removed. A venogram was performed with a balloon catheter, and in the late phase of the venogram, a large posterolateral vein was identified. Once again, the subselecting catheter was placed in the mouth of this vein and a venogram of this posterolateral vein was performed. The original CS sheath was placed over this subselecting sheath, into the posterolateral vein. Once the posterolateral vein was subselected and cannulated, an LV lead was placed distally into the posterolateral branch. This was a new quadripolar lead, Medtronic model #4798, 88 cm in length, and serial #[id number]. There was diaphragmatic stimulation at pole 1, but poles 2, 3 and 4 had excellent thresholds without diaphragmatic stimulation. The final threshold was 0.75 V at 0.4 milliseconds between poles 3 and 4. Pacing impedance was 741 ohms. RV pacing threshold was 1 V at 0.4 milliseconds. High-voltage impedance 85 ohms and pacing impedance 456 ohms. RV sensing 13.8 mV. Left bundle branch block pattern. The old generator was explanted. The new generator was implanted after the LV lead sheaths were cut and the leads secured to the pectoralis muscle. The new generator was implanted. This was a [employer] HF quadripolar MRI lead, model #[id number], serial #[id number]. The leads and the generator were then placed in the subfascial pocket and the wound was closed in 3 layers and dressed per protocol. RESULT: 1. Successful extraction of the His bundle lead that was dislodged from its original position. 2. Venoplasty of the left subclavian vein on account of its stenosis. 3. Successful placement of an LV lead in the posterolateral branch. A screw-in LV lead was placed. This was a Medtronic model #4798, 88 cm in length, and serial #[id number]. The lead was successfully screwed in and tested. 4. The old biventricular ICD generator was explanted and a new generator with a quadripolar LV port was implanted. The patient tolerated the procedure well without any acute complications. MMODL / IJN: [id number] /
[2020-06-30 17:59] LABS: Glucose,Whole Blood 136 mg/dL (75-99)
[2020-06-30] MEDS ORDERED: ACETAMINOPHEN IV (For NPO) 1,000 MG in EMPTY BAG 1 BAG IVPB ONE (18:00)
[2020-06-30] MEDS: metFORMIN 500 MG TAB PO SCH (18:05)
[2020-06-30 18:53] VITALS: RESP 18
[2020-06-30 20:36] LABS: Glucose,Whole Blood 158 mg/dL (75-99)
[2020-06-30] MEDS: METOPROLOL SUCCINATE (ER) 50 MG TAB.ER.24H PO SCH (20:55)
[2020-06-30] MEDS: HYDROcodone/APAP 5-325MG 1 EACH TAB PO PRN (20:55)
[2020-06-30] MEDS: GABAPENTIN 100 MG CAP PO SCH (20:55)
[2020-06-30] MEDS: GLIMEPIRIDE 4 MG TAB PO SCH (20:56)
[2020-06-30] MEDS ORDERED: ATORVASTATIN 80 MG TAB PO SCH (21:00)
[2020-06-30] MEDS ORDERED: INSULIN DETEMIR (LEVEMIR) 100 UNIT/ML SYR SQ SCH (21:00)
[2020-07-01] MEDS: HYDROcodone/APAP 5-325MG 1 EACH TAB PO PRN ×2 (02:31→07:47)
[2020-07-01 06:04] LABS: Glucose,Whole Blood 237 mg/dL (75-99)
[2020-07-01] MEDS ORDERED: LEVOTHYROXINE 112 MCG TAB PO SCH (06:30)
[2020-07-01] MEDS: INSULIN ASPART (NovoLOG) 100 UNIT/ML VIAL SQ SCH ×3 (06:42→11:51)
[2020-07-01] MEDS: metFORMIN 500 MG TAB PO SCH (06:42)
[2020-07-01 07:46] VITALS: BP 188/77; PULSE 77; TEMP 97.8
[2020-07-01] MEDS: GABAPENTIN 100 MG CAP PO SCH (07:47)
[2020-07-01] MEDS: GLIMEPIRIDE 4 MG TAB PO SCH (07:47)
[2020-07-01] MEDS: METOPROLOL SUCCINATE (ER) 50 MG TAB.ER.24H PO SCH (07:47)
[2020-07-01] MEDS ORDERED: lisinopriL 10 MG TAB PO SCH (09:00)
[2020-07-01] MEDS ORDERED: PARoxetine 20 MG TAB PO SCH (09:00)
[2020-07-01] MEDS ORDERED: SPIRONOLACTONE 25 MG TAB PO SCH (09:00)
[2020-07-01] MEDS ORDERED: ASPIRIN 81 MG PO SCH (09:00)
[2020-07-01] MEDS ORDERED: DIGOXIN 125 MCG TAB PO SCH (09:00)
[2020-07-01 11:51] LABS: Glucose,Whole Blood 138 mg/dL (75-99)
--- NOTE | 2020-07-01 12:38 | P.DS ---
Providers Attending physician: Danilo Angela Primary care physician: [facility] Course: INTERVAL HISTORY: The patient is a 69-year-old male past medical history coronary artery diseas, ischemic cardiomyopathy status post ICD, hypertension, dyslipidemia, type 2 diabetes, persistent atrial fibrillation (on Xarelto) and mitral regurgitation. Patient was admitted to the hospital by Dr. Angela. He had undergone upgrade to a biventricular ICD with His bundle pacing. The His bundle lead was positioned with excellent thresholds at the 3 month. However when he came back for follow-up visit after 4 months, he had not capture of his His bundle lead. Cinefluoroscopy revealed dislodgement of the His bundle lead. Patient underwent extraction of his His bundle lead and implantation of a new LV lead, venoplasty of the left subclavian vein on account of stenosis, new generator was implanted with Dr. Angela yesterday, 06/30/2020. Patient was monitored overnight. No acute events. Today, his device was interrogation with no acute abnormalities. He was stable to be discharged home. PHYSICAL EXAMINATION: Blood pressure 118/60, heart rate 62 respirations 18, temp 97.8. Patient is 96-98% % on room air. HEART: S1, S2 normal. LUNGS: Clear to auscultation. CHEST: Left chest site covered with dressing, no hematoma. some mild tenderness expected at site with palpation. NECK: Supple. ABDOMEN: Soft. EXTREMITIES: 2+ peripheral pulses. FINAL IMPRESSION: 1. Coronary artery disease 2. Ischemic cardiomyopathy s/p Bi ventricular ICD 3. Hypertension 4. Dyslipidemia 5. Chronic persistent atrial fibrillation on Xarelto 6. Type 2 Diabetes PLAN: Patient may be able to be discharged home today. Continue home medications. We will make him a follow-up appointment in the device clinic in one week. Follow up with Dr. Angela in 3 months. Plan - Discharge Summary Discharge Rx Participant: No New Discharge Prescriptions: No Action metFORMIN HCL 1,000 mg PO AC-BID Levothyroxine Sodium [Synthroid] 112 mcg PO DAILY ALPRAZolam [Xanax] 0.25 mg PO BID PRN PRN Reason: Anxiety Aspirin EC [Ecotrin Low Dose] 81 mg PO DAILY Atorvastatin [Lipitor] 80 mg PO HS tab Nitroglycerin Sl Tabs [Nitrostat] 0.4 mg SUBLINGUAL Q5M PRN #0 tab PRN Reason: Chest Pain PARoxetine [Paxil] 20 mg PO DAILY tab Rivaroxaban [Xarelto] 20 mg PO W/SUPPER tab Spironolactone [Aldactone] 12.5 mg PO DAILY tab Lisinopril [Zestril] 10 mg PO DAILY Omalizumab [Xolair] 225 mg SQ Q14D HYDROcodone/APAP 10-325MG [[place] 10-325] 1 tab PO QID Gabapentin [Neurontin] 100 mg PO TID Insulin Glargine,Hum.rec.anlog [Basaglar Kwikpen U-100] 44 unit SQ HS Digoxin [Digitek] 125 mcg PO DAILY Glimepiride [Amaryl] 4 mg PO BID INSULIN LISPRO (humaLOG) [humaLOG] 17 units SQ AC-TID Metoprolol Succinate [Toprol XL] 50 mg PO BID #180 tab Ergocalciferol [Vitamin D2] 50,000 unit PO WE Discharge Medication List Levothyroxine Sodium [Synthroid] 112 mcg PO DAILY 06/29/13 [History] metFORMIN HCL 1,000 mg PO AC-BID 06/29/13 [History] ALPRAZolam [Xanax] 0.25 mg PO BID PRN 04/13/14 [History] Aspirin EC [Ecotrin Low Dose] 81 mg PO DAILY 09/29/15 [History] Atorvastatin [Lipitor] 80 mg PO HS tab 10/04/15 [Rx] Nitroglycerin Sl Tabs [Nitrostat] 0.4 mg SUBLINGUAL Q5M PRN #0 tab 10/04/15 [Rx] PARoxetine [Paxil] 20 mg PO DAILY tab 10/04/15 [Rx] Rivaroxaban [Xarelto] 20 mg PO W/SUPPER tab 10/04/15 [Rx] Spironolactone [Aldactone] 12.5 mg PO DAILY tab 10/04/15 [Rx] Lisinopril [Zestril] 10 mg PO DAILY 12/20/15 [History] Omalizumab [Xolair] 225 mg SQ Q14D 01/17/16 [History] HYDROcodone/APAP 10-325MG [[place] 10-325] 1 tab PO QID 10/23/16 [History] Gabapentin [Neurontin] 100 mg PO TID 08/13/17 [History] Digoxin [Digitek] 125 mcg PO DAILY 07/29/19 [History] Glimepiride [Amaryl] 4 mg PO BID 07/29/19 [History] Insulin Glargine,Hum.rec.anlog [Basaglar Edouardikpen U-100] 44 unit SQ HS 07/29/19 [History] INSULIN LISPRO (humaLOG) [humaLOG] 17 units SQ AC-TID 08/19/19 [History] Metoprolol Succinate [Toprol XL] 50 mg PO BID #180 tab 08/25/19 [Rx] Ergocalciferol [Vitamin D2] 50,000 unit PO WE 01/19/20 [History]
--- NOTE | 2020-07-01 13:01 | P.PN ---
Progress Note - Text Patient had intermittent diaphragmatic stimulation when pacing from the proximal to poles in certain positions While the threshold is excellent at 0.75 V at 0.4 ms, diaphragmatic stimulation occurs at 3.5 V Device was reprogrammed This was explained to the patient He may need to change his body position if he has some diaphragmatic stimulation He has one large excellent posterior lateral vein no anterior or lateral veins that can be used they're very diminutive We have to work with this pain and find the back to that works best for him
== END 2020-07-01 13:34 | disposition home or self-care (01) ==
LOC: CATHEP 09:16 → 3SCARD 16:47 → CATHEP 07-01 13:34
PROVIDERS: ATTEND Internal Medicine Clinical Cardiac Electrophysiology
DX: T82.120A Displacement of cardiac electrode, initial encounter (principal); R06.02 Shortness of breath; I25.5 Ischemic cardiomyopathy; I48.21 Permanent atrial fibrillation; I49.5 Sick sinus syndrome; I44.7 Left bundle-branch block, unspecified; I25.10 Atherosclerotic heart disease of native coronary artery without angina pectoris; I11.0 Hypertensive heart disease with heart failure; I50.22 Chronic systolic (congestive) heart failure; E07.9 Disorder of thyroid, unspecified; J44.9 Chronic obstructive pulmonary disease, unspecified; Z86.73 Personal history of transient ischemic attack (TIA), and cerebral infarction without residual deficits; F41.9 Anxiety disorder, unspecified; F32.9 Major depressive disorder, single episode, unspecified; I25.2 Old myocardial infarction; E11.9 Type 2 diabetes mellitus without complications; I34.0 Nonrheumatic mitral (valve) insufficiency; E78.5 Hyperlipidemia, unspecified; Z79.82 Long term (current) use of aspirin; Z79.899 Other long term (current) drug therapy; Z79.01 Long term (current) use of anticoagulants; Z79.890 Hormone replacement therapy; Z79.4 Long term (current) use of insulin
CPT/HCPCS: 33224; 80048; 85025; 87635; 71045; C1769 ×4; C1882; C1892; C1730; C1887; J3370; J2710; J0690 ×2; J2001; J3010; J2370; J0330; Q9967; 33225; 33234; 33264

== ENCOUNTER 2021-04-19 18:43 | Inpatient (IN) | payer MEDICARE, BC ==
--- NOTE | 2021-04-19 19:18 | XR ---
EXAMINATION TYPE: XR chest 2V DATE OF EXAM: 04/19/2021 COMPARISON: 06/30/2020 HISTORY: Check lead placement TECHNIQUE: 2 views FINDINGS: There is no heart failure nor confluent pneumonic infiltrate. There is a left axillary pace maker noted. There is no pleural effusion. There are small linear density left lower lobe. IMPRESSION: Subsegmental atelectasis left lower lobe is new compared to old exam.. Normal heart. Pace maker leads appear in similar position to last exam.
[2021-04-19 19:24] LABS: Partial Thromboplastin Time 24.5 sec (22.0-30.0); Prothrombin Time 10.8 sec (9.0-12.0)
[2021-04-19 19:25] LABS: Albumin 3.9 g/dL (3.5-5.0); Calcium 8.7 mg/dL (8.4-10.2); Magnesium 1.6 mg/dL (1.6-2.3); Total Bilirubin 1.1 mg/dL (0.2-1.3); Total Protein 7.5 g/dL (6.3-8.2)
[2021-04-19 19:26] LABS: Potassium 5.7 mmol/L (3.5-5.1)
[2021-04-19 19:31] LABS: Basophils % (A) 0 %; Eosinophils % (A) 0 %; HCT 44.7 % (39.0-53.0); Lymphocytes # (A) 1.3 k/uL (1.0-4.8); Lymphocytes % (A) 11 %; MCH 32.1 pg (25.0-35.0); MCHC 33.6 g/dL (31.0-37.0); MCV 95.4 fL (80.0-100.0); Mean Platelet Volume 8.4; Monocytes # (A) 0.5 k/uL (0-1.0); Monocytes % (A) 4 %; Neutrophils # (A) 10.4 k/uL (1.3-7.7); Neutrophils % (A) 83 %; Platelet Count 269 k/uL (150-450); RBC 4.68 m/uL (4.30-5.90); RDW 13.4 % (11.5-15.5); WBC 12.5 k/uL (3.8-10.6)
[2021-04-19] MEDS ORDERED: MORPHINE SULFATE 4 MG/ML SYRINGE IVP STA (20:36)
[2021-04-19] MEDS ORDERED: ASPIRIN 81 MG PO STA (20:36)
[2021-04-19] MEDS ORDERED: NITROGLYCERIN SL TABS 0.4 MG TAB SUBLINGUAL STA (20:36)
[2021-04-19] MEDS ORDERED: PANTOPRAZOLE 40 MG/10 ML VIAL IVP STA (20:36)
--- NOTE | 2021-04-19 21:01 | ED ---
Chest Pain HPI - General Chief Complaint: Chest Pain Stated Complaint: chest pain Time Seen by Provider: 04/19/21 18:54 Source: patient Mode of arrival: wheelchair Limitations: no limitations - History of Present Illness Initial Comments: 70-year-old male with past medical history of ischemic cardiomyopathy, pacemaker with defibrillator who presents to the emergency department with chest pain. States that it started 2 hours prior to hospital arrival. Located in the substernal area without radiation. Pain has been constant. He did take a nitro at home and it did not help however it was . Pain is graded as an 8 out of 10. No associated nausea, vomiting or diaphoresis. No shortness of breath. Denies fevers, chills or cough. Patient is on anticoagulation and has not missed any doses. No other alleviating, precipitating or modifying factors - Related Data Home Medications Medication Instructions Recorded Confirmed Levothyroxine Sodium [Synthroid] 112 mcg PO DAILY 06/29/13 04/19/21 metFORMIN HCL [Glucophage] 1,000 mg PO BID 06/29/13 04/19/21 ALPRAZolam [Xanax] 0.25 mg PO BID PRN 04/13/14 04/19/21 Aspirin EC [Ecotrin Low Dose] 81 mg PO DAILY 09/29/15 04/19/21 Lisinopril [Zestril] 10 mg PO DAILY 12/20/15 04/19/21 Omalizumab [Xolair] 225 mg SQ Q14D 01/17/16 04/19/21 HYDROcodone/APAP 10-325MG [[place] 1 tab PO QID 10/23/16 04/19/21 10-325] Gabapentin [Neurontin] 100 mg PO TID 08/13/17 04/19/21 Digoxin [Digitek] 125 mcg PO DAILY 07/29/19 04/19/21 INSULIN LISPRO (humaLOG) [humaLOG] 20 units SQ AC-TID 08/19/19 04/19/21 Furosemide [Lasix] 1 tab PO DAILY 12/06/20 04/19/21 Ergocalciferol (Vitamin D2) 1,250 mcg PO WE 04/19/21 04/19/21 [Drisdol (50,000 Iu)] FLUoxetine HCL [PROzac] 20 mg PO DAILY 04/19/21 04/19/21 Insulin NPH Human Isophane 44 units SQ DAILY 04/19/21 04/19/21 [NovoLIN N] Rivaroxaban [Xarelto] 20 mg PO W/SUPPER 04/19/21 04/19/21 Previous Rx's Medication Instructions Recorded Atorvastatin [Lipitor] 80 mg PO HS tab 10/04/15 Nitroglycerin Sl Tabs [Nitrostat] 0.4 mg SUBLINGUAL Q5M PRN #0 tab 10/04/15 Metoprolol Succinate [Toprol XL] 50 mg PO BID #180 tab 08/25/19 Clopidogrel [Plavix] 75 mg PO DAILY 30 Days #30 tab 04/21/21 Ezetimibe [Zetia] 10 mg PO DAILY 90 Days #90 tab 04/22/21 Allergies Allergy/AdvReac Type Severity Reaction Status Date / Time No Known Allergies Allergy Verified 04/19/21 21:06 Review of Systems ROS Statement: Those systems with pertinent positive or pertinent negative responses have been documented in the HPI. ROS Other: All systems not noted in ROS Statement are negative. EKG Findings - EKG Comments: EKG Findings:: EKG demonstrates a AV pacemaker with a rate of 77. QRS 158. QTC of 453. There are some PVCs. Pacemaker captures appropriately. Negative for acute ST segment elevation Past Medical History Past Medical History: Asthma, Chest Pain / Angina, Heart Failure, COPD, CVA/TIA, Diabetes Mellitus, Hyperlipidemia, Hypertension, Myocardial Infarction ([place]), Pneumonia, Skin Disorder, Thyroid Disorder Additional Past Medical History / Comment(s): hypothyroid, psoriasis Last Myocardial Infarction Date:: 1998 History of Any Multi-Drug Resistant Organisms: None Reported Past Surgical History: Appendectomy, Back Surgery, Cholecystectomy, Heart Catheterization, Orthopedic Surgery, Pacemaker Additional Past Surgical History / Comment(s): BACK SURGERY X3, LEFT ROTATOR CUFF, pacemaker/difb. Past Anesthesia/Blood Transfusion Reactions: No Reported Reaction Type of Cardiac Device: Permanent Pacemaker Device Placement Date:: 2017 Past Psychological History: Anxiety, Depression Smoking Status: Never smoker Past Alcohol Use History: None Reported - Past Family History Mother Family Medical History: Diabetes Mellitus General Exam Limitations: no limitations General appearance: alert, in no apparent distress Head exam: Present: atraumatic, normocephalic, normal inspection Eye exam: Present: normal appearance, PERRL, EOMI. Absent: scleral icterus, conjunctival injection, periorbital swelling ENT exam: Present: normal exam, mucous membranes moist Neck exam: Present: normal inspection. Absent: tenderness, meningismus, lymphadenopathy Respiratory exam: Present: normal lung sounds bilaterally. Absent: respiratory distress, wheezes, rales, rhonchi, stridor Cardiovascular Exam: Present: regular rate, normal rhythm, normal heart sounds. Absent: systolic murmur, diastolic murmur, rubs, gallop, clicks GI/Abdominal exam: Present: soft, normal bowel sounds. Absent: distended, tenderness, guarding, rebound, rigid Extremities exam: Present: normal inspection, full ROM, normal capillary refill. Absent: tenderness, pedal edema, joint swelling, calf tenderness Back exam: Present: normal inspection Neurological exam: Present: alert, oriented X3, CN II-XII intact Psychiatric exam: Present: normal affect, normal mood Skin exam: Present: warm, dry, intact, normal color. Absent: rash Course Vital Signs 04/19/21 04/19/21 04/19/21 18:45 20:48 21:03 Temperature 97.7 F Pulse Rate 80 67 70 Respiratory 18 16 18 Rate Blood Pressure 139/81 150/97 156/82 O2 Sat by Pulse 98 98 98 Oximetry Chest Pain MDM - MDM On arrival patient was placed into room 9. A thorough history and physical exam was performed. IV access was established laboratory studies were conducted. Patient's potassium is 5.7 however this is hemolyzed. Troponin is negative. Patient is given an aspirin, morphine, nitro and Protonix. Patient is reevaluated and reports that his pain has markedly improved at this time and is only a 1 out of 10. Recommended admission in order to trend his troponins and consult cardiology. Patient agreed to this and he transferred the floor in stable condition Disposition Clinical Impression: Chest pain, History of ischemic cardiomyopathy Disposition: ADMITTED IP TO THIS HOSP Condition: Stable Is patient prescribed a controlled substance at d/c from ED?: No Decision to Admit Reason: Admit from EC Decision Date: 04/19/21 Decision Time: 21:05
[2021-04-19] MEDS ORDERED: NALOXONE 0.4 MG/ML 1 ML VIAL IV PRN (21:05)
[2021-04-19] MEDS ORDERED: ALPRAZolam 0.25 MG TAB PO PRN (22:30)
[2021-04-19] MEDS ORDERED: RIVAROXABAN 20 MG TAB PO SCH (22:45)
[2021-04-19] MEDS: GABAPENTIN 100 MG CAP PO SCH (23:31)
[2021-04-19] MEDS: HYDROcodone/APAP 10-325MG 1 EACH TAB PO SCH (23:31)
[2021-04-19] MEDS: ATORVASTATIN 80 MG TAB PO SCH (23:31)
[2021-04-19] MEDS: METOPROLOL SUCCINATE (ER) 50 MG TAB.ER.24H PO SCH (23:31)
[2021-04-19] MEDS: KETOROLAC 0.5% OPHTH DROPS 5 ML BTL RIGHT EYE SCH (23:32)
[2021-04-20 01:18] LABS: Digoxin 0.5 ng/mL
[2021-04-20] MEDS ORDERED: HEPARIN SODIUM 1,000 UN/ML (10ML VL) IV ONE (02:47)
[2021-04-20] MEDS ORDERED: HEPARIN SODIUM 1,000 UN/ML (10ML VL) IV PRN (02:49)
[2021-04-20 02:54] LABS: Basophils # (A) 0.1 k/uL (0-0.2); Basophils % (A) 1 %; Eosinophils # (A) 0.1 k/uL (0-0.7); Eosinophils % (A) 1 %; HCT 42.5 % (39.0-53.0); HGB 13.8 gm/dL (13.0-17.5); Lymphocytes % (A) 20 %; MCH 31.3 pg (25.0-35.0); MCHC 32.4 g/dL (31.0-37.0); MCV 96.7 fL (80.0-100.0); Mean Platelet Volume 8.2; Monocytes # (A) 0.5 k/uL (0-1.0); Monocytes % (A) 5 %; Neutrophils # (A) 7.3 k/uL (1.3-7.7); Neutrophils % (A) 73 %; Platelet Count 235 k/uL (150-450); RBC 4.39 m/uL (4.30-5.90); RDW 13.4 % (11.5-15.5); WBC 10.1 k/uL (3.8-10.6)
[2021-04-20 03:16] LABS: ALT 15 U/L (4-49); AST 20 U/L (17-59); African American GFR (CKD) >90 (>60 ml/min/1.73 sqM); Albumin 3.2 g/dL (3.5-5.0); Albumin/Globulin Ratio 1.1; Alkaline Phosphatase 96 U/L (38-126); Anion Gap 11 mmol/L; Blood Urea Nitrogen 22 mg/dL (9-20); Calcium 8.5 mg/dL (8.4-10.2); Carbon Dioxide 18 mmol/L (22-30); Chloride 104 mmol/L (98-107); Globulin 2.9 g/dL; Glucose 286 mg/dL (74-99); Non-African American GFR(CKD) 86 (>60 ml/min/1.73 sqM); Potassium 4.1 mmol/L (3.5-5.1); Sodium 133 mmol/L (137-145); Total Bilirubin 0.5 mg/dL (0.2-1.3); Total Protein 6.1 g/dL (6.3-8.2)
[2021-04-20] MEDS: NITROGLYCERIN OINT 1 INCH/GM PACKET TOPICAL SCH ×5 (03:17→23:42)
[2021-04-20] MEDS: HEPARIN SOD,PORK IN 0.45% NACL 25,000 UNIT in 0.45% NACL 1 250ML.BAG IV SCH ×2 (03:17→23:43)
[2021-04-20] MEDS: LEVOTHYROXINE 112 MCG TAB PO SCH (06:08)
[2021-04-20 08:28] LABS: Glucose,Whole Blood 236 mg/dL (75-99)
[2021-04-20] MEDS ORDERED: ALPRAZolam 0.5 MG TAB PO PRN (08:50)
[2021-04-20] MEDS: METOPROLOL SUCCINATE (ER) 50 MG TAB.ER.24H PO SCH ×2 (09:05→20:19)
[2021-04-20] MEDS: lisinopriL 10 MG TAB PO SCH (09:05)
[2021-04-20] MEDS: HYDROcodone/APAP 10-325MG 1 EACH TAB PO SCH ×4 (09:07→22:12)
[2021-04-20] MEDS: INSULIN ASPART (NovoLOG) 100 UNIT/ML VIAL SQ SCH ×3 (09:08→18:07)
[2021-04-20] MEDS: GABAPENTIN 100 MG CAP PO SCH ×3 (09:08→22:13)
[2021-04-20] MEDS: FUROSEMIDE 20 MG TAB PO SCH (09:08)
[2021-04-20] MEDS: FLUoxetine HCL 20 MG CAP PO SCH (09:08)
[2021-04-20] MEDS: ASPIRIN 81 MG PO SCH (09:08)
[2021-04-20] MEDS: KETOROLAC 0.5% OPHTH DROPS 5 ML BTL RIGHT EYE SCH ×2 (09:09→20:19)
[2021-04-20] MEDS: DIGOXIN 125 MCG TAB PO SCH (09:09)
[2021-04-20] MEDS: INSULIN NPH 300 UNIT/3 ML VIAL SQ SCH (09:09)
--- NOTE | 2021-04-20 10:00 | ECHOF ---
Referral Reason:chest pain elevated troponin MEASUREMENTS -------- HEIGHT: 182.9 cm WEIGHT: 139.3 kg BP: RVIDd: 3.5 cm (< 3.3) IVSd: 1.2 cm (0.6 - 1.1) LVIDd: 5.5 cm (3.9 - 5.3) LVPWd: 1.0 cm (0.6 - 1.1) IVSs: 1.4 cm LVIDs: 4.6 cm LVPWs: 1.6 cm LAESV Index (A-L): 33.32 ml/m Ao Diam: 3.6 cm (2.0 - 3.7) AV Cusp: 1.8 cm (1.5 - 2.6) LA Diam: 3.6 cm (2.7 - 3.8) MV EXCURSION: 12.842 mm (> 18.000) MV EF SLOPE: 139 mm/s (70 - 150) EPSS: 0.8 cm RAP: 5.00 mmHg RVSP: 23.43 mmHg FINDINGS -------- Paced rhythm. This was a technically adequate study. The left ventricular size is normal. There is mild concentric left ventricular hypertrophy. Overa ll left ventricular systolic function is low-normal with, an EF between 50 - 55 %. Septal wall jhoan on is delayed, and consistent with ventricular pacing. Basal inferior LV wall motion is hypokinetic . The right ventricle is normal in size. LA is midly dilated 29-33ml/m2. The right atrial size is normal. There is mild aortic valve sclerosis. There is no evidence of aortic regurgitation. Mild mitral regurgitation is present. Mild tricuspid regurgitation present. Right ventricular systolic pressure is normal at < 35 mmHg. There is no pulmonic regurgitation present. There is no pericardial effusion. CONCLUSIONS -------- 1. The left ventricular size is normal. 2. There is mild concentric left ventricular hypertrophy. 3. Overall left ventricular systolic function is low-normal with, an EF between 50 - 55 %. 4. Septal wall motion is delayed, and consistent with ventricular pacing. 5. The right ventricle is normal in size. 6. LA is midly dilated 29-33ml/m2. 7. The right atrial size is normal. 8. There is mild aortic valve sclerosis. 9. Mild mitral regurgitation is present. 10. Mild tricuspid regurgitation present. 11. Right ventricular systolic pressure is normal at < 35 mmHg. 12. There is no pulmonic regurgitation present. 13. There is no pericardial effusion. [employer]: Gregoria Cannon RDCS
--- NOTE | 2021-04-20 10:19 | P.CRDCN ---
History of Present Illness History of present illness: HISTORY OF PRESENTING ILLNESS This is a pleasant 70-year-old male past medical history significant for non- critical triple-vessel coronary artery disease, ischemic cardiomyopathy the with an improved EF of 45%, status post biventricular pacemaker implantation in 2010, chronic heart failure with preserved ejection fraction, peripheral vascular disease, permanent atrial fibrillation on Xarelto, type 2 diabetes. History of non-capture of His bundle lead s/p He follows in the office with Dr. Angela. We have been asked to see in consultation for chest pain. Patient presents to the emergency department with complaints of chest discomfort. Started at 5:30PM last night, he states he was just sitting down. He describes the chest discomfort as heaviness and strong pain. Located in the center of his chest. It was non- radiating. Not specifically aggravated by activity. He denies any associated symptoms. He denies nausea, shortness of breath, diaphoresis, lightheadedness, dizziness, syncope or near syncope. He denies any symptoms of dyspnea on exertion, orthopnea or PND. His pain continued for hours. He states he took a sublingual nitro however it was old/ and did not have much improved. He presented tot he emergency department. He was started on IV heparin, given IV morphine, Nitro and aspirin. He is currently chest pain free. He denies history of MS, stent placements, Stroke. He is a non smoker. DIAGNOSTICS EKG reveals ventricular paced rhythm, underlying atrial fibrillation, heart rate 77, PVCs Last Cardiac Catheterization 2010 revealed 30% stenosis in the proximal RCA, 4050 percent stenosis in the mid RCA, 40% stenosis in the LAD Most recent echocardiogram 11/2020 in the office revealed EF of 45%, mild to moderate mitral regurgitation, mild tricuspid regurgitation Most recent stress test Lexiscan 07/2019 revealed no evidence of reversible ischemia Telemetry tracings indicate ventricular paced rhythm, heart rates in the 60s, PVCs Chest xray no acute cardiopulmonary process Laboratory reviewed, troponin <0.12--> 0.11, 0.16, sodium 133, potassium 4.1, BUN 22, serum creatinine 0.8, magnesium 1.6, d-dimer negative, TSH within normal limits, digoxin level normal, CBC unremarkable Current home medications include Xarelto 20 mg daily, when necessary nitro, atorvastatin 80, Lasix, metoprolol 650 mg twice a day, lisinopril 10 mg daily, Synthroid, aspirin 81 mg daily REVIEW OF SYSTEMS At the time of my exam: CONSTITUTIONAL: Denies fever or chills. CARDIOVASCULAR: Denies chest pain, shortness of breath, orthopnea, PND or palpitations. RESPIRATORY: Denies cough. GASTROINTESTINAL: Denies abdominal pain, diarrhea, constipation, nausea or vomiting. MUSCULOSKELETAL: Denies myalgias. NEUROLOGIC: Denies numbness, tingling, headache or weakness. ENDOCRINE: Denies fatigue, weight change, polydipsia or polyurina. GENITOURINARY: Denies burning, hematuria or urgency with micturation. HEMATOLOGIC: Denies history of anemia or bleeding. PHYSICAL EXAMINATION Blood pressure 95/58, heart 65, afebrile, oxygen saturation is 96% on room air CONSTITUTIONAL: No apparent distress. HEENT: Head is normocephalic. Pupils are equal, round. Sclerae anicteric. Mucous membranes of the mouth are moist. No JVD. No carotid bruit. CHEST EXAMINATION: Lungs are clear to auscultation. No chest wall tenderness is noted on palpation or with deep breathing. HEART EXAMINATION: Regular rate and rhythm. S1, S2 heard. Systolic ejection murmur at apex, no gallops or rub. ABDOMEN: Soft, nontender. Positive bowel sounds. EXTREMITIES: 2+ peripheral pulses, no lower extremity edema and no calf tenderness. SKIN: warm, dry NEUROLOGIC EXAMINATION: Patient is awake, alert and oriented x3. ASSESSMENT NSTEMI Non-obstructive coronary artery disease History of ischemic cardiomyopathy with improvement in ejection fraction Chronic heart failure with preserved ejection fraction, improved Status post biventricular pacemaker implantation in 2010 Peripheral vascular disease Permanent atrial fibrillation on Xarelto Type 2 diabetes PLAN -Patient received Xarelto 20mg last night, we recommend cardiac catheterization, patient is agreeable. Plan for procedure tomorrow 04/21/[address] Khan -I have discussed the risks, benefits and alternative therapies for the above-mentioned procedure and for both sedation/analgesia as well as necessary blood product administration, if indicated, as they pertain to this patient. The patient has indicated understanding and acceptance of the risks and procedures discussed. Questions have been answered appropriately and he is agreeable to move forward with the above-stated procedure. -Continue IV heparin drip -Obtain 2D echocardiogram -Continue home cardiac medications. Will place old parameters for metoprolol and lisinopril if SBP <110 -NPO after midnight -Further recommendations based on clinical course Thank you kindly for this consultation. Nurse practitioner note has been reviewed by physician. Signing provider agrees with the documented findings, assessment, and plan of care. Past Medical History Past Medical History: Asthma, Chest Pain / Angina, Heart Failure, COPD, CVA/TIA, Diabetes Mellitus, Hyperlipidemia, Hypertension, Myocardial Infarction (MS), Pneumonia, Skin Disorder, Thyroid Disorder Additional Past Medical History / Comment(s): hypothyroid, psoriasis Last Myocardial Infarction Date:: 1998 History of Any Multi-Drug Resistant Organisms: None Reported Past Surgical History: Appendectomy, Back Surgery, Cholecystectomy, Heart Catheterization, Orthopedic Surgery, Pacemaker Additional Past Surgical History / Comment(s): BACK SURGERY X3, LEFT ROTATOR CUFF, pacemaker/difb. Past Anesthesia/Blood Transfusion Reactions: No Reported Reaction Type of Cardiac Device: Permanent Pacemaker Device Placement Date:: 2017 Past Psychological History: Anxiety, Depression Smoking Status: Never smoker Past Alcohol Use History: None Reported - Past Family History Mother Family Medical History: Diabetes Mellitus Medications and Allergies Home Medications Medication Instructions Recorded Confirmed Type Levothyroxine Sodium [Synthroid] 112 mcg PO DAILY 06/29/13 04/19/21 History metFORMIN HCL [Glucophage] 1,000 mg PO BID 06/29/13 04/19/21 History ALPRAZolam [Xanax] 0.25 mg PO BID PRN 04/13/14 04/19/21 History Aspirin EC [Ecotrin Low Dose] 81 mg PO DAILY 09/29/15 04/19/21 History Atorvastatin [Lipitor] 80 mg PO HS tab 10/04/15 04/19/21 Rx Nitroglycerin Sl Tabs [Nitrostat] 0.4 mg SUBLINGUAL Q5M PRN #0 tab 10/04/15 04/19/21 Rx Lisinopril [Zestril] 10 mg PO DAILY 12/20/15 04/19/21 History Omalizumab [Xolair] 225 mg SQ Q14D 01/17/16 04/19/21 History HYDROcodone/APAP 10-325MG [[place] 1 tab PO QID 10/23/16 04/19/21 History 10-325] Gabapentin [Neurontin] 100 mg PO TID 08/13/17 04/19/21 History Digoxin [Digitek] 125 mcg PO DAILY 07/29/19 04/19/21 History Glimepiride [Amaryl] 4 mg PO BID 07/29/19 04/19/21 History INSULIN LISPRO (humaLOG) [humaLOG] 20 units SQ AC-TID 08/19/19 04/19/21 History Metoprolol Succinate [Toprol XL] 50 mg PO BID #180 tab 08/25/19 04/19/21 Rx Furosemide [Lasix] 1 tab PO DAILY 12/06/20 04/19/21 History Ergocalciferol (Vitamin D2) 1,250 mcg PO WE 04/19/21 04/19/21 History [Drisdol (50,000 Iu)] FLUoxetine HCL [PROzac] 20 mg PO DAILY 04/19/21 04/19/21 History Insulin NPH Human Isophane 44 units SQ DAILY 04/19/21 04/19/21 History [NovoLIN N] Rivaroxaban [Xarelto] 20 mg PO W/SUPPER 04/19/21 04/19/21 History Allergies Allergy/AdvReac Type Severity Reaction Status Date / Time No Known Allergies Allergy Verified 04/19/21 21:06 Physical Exam Vitals: Vital Signs Temp Pulse Pulse Resp BP BP Pulse Ox 04/20/21 06:57 98.4 F 65 16 95/58 96 04/20/21 02:35 98.5 F 59 L 18 127/77 96 04/20/21 01:39 69 04/19/21 22:52 69 16 04/19/21 22:18 98.4 F 69 16 132/74 99 04/19/21 21:03 70 18 156/82 98 04/19/21 20:48 67 16 150/97 98 04/19/21 18:45 97.7 F 80 18 139/81 98 Intake and Output 04/19/21 04/20/21 04/20/21 22:59 06:59 14:59 Intake Total 0 Balance 0 Intake: Blood Product 0 Other: Voiding Method Toilet # Voids 1 Weight 140.614 kg 139.4 kg Results 04/20/21 02:25 04/20/21 02:25 Cardiac Enzymes 04/19/21 04/19/21 04/20/21 Range/Units 19:06 19:06 00:36 AST 37 (17-59) U/L Troponin I <0.012 0.110 H* (0.000-0.034) ng/mL 04/20/21 04/20/21 Range/Units 02:25 02:25 AST 20 (17-59) U/L Troponin I 0.163 H* (0.000-0.034) ng/mL Coagulation 04/19/21 Range/Units 19:06 PT 10.8 (9.0-12.0) sec APTT 24.5 (22.0-30.0) sec CBC 04/19/21 04/20/21 Range/Units 19:06 02:25 WBC 12.5 H 10.1 (3.8-10.6) k/uL RBC 4.68 4.39 (4.30-5.90) m/uL Hgb 15.0 13.8 (13.0-17.5) gm/dL Hct 44.7 42.5 (39.0-53.0) % Plt Count 269 235 (150-450) k/uL Comprehensive Metabolic Panel 04/19/21 04/20/21 Range/Units 19:06 02:25 Sodium 135 L 133 L (137-145) mmol/L Potassium 5.7 H 4.1 (3.5-5.1) mmol/L Chloride 103 104 (98-107) mmol/L Carbon Dioxide 22 18 L (22-30) mmol/L BUN 22 H 22 H (9-20) mg/dL Creatinine 1.01 0.89 (0.66-1.25) mg/dL Glucose 241 H 286 H (74-99) mg/dL Calcium 8.7 8.5 (8.4-10.2) mg/dL AST 37 20 (17-59) U/L ALT 18 15 (4-49) U/L Alkaline Phosphatase 92 96 (38-126) U/L Total Protein 7.5 6.1 L (6.3-8.2) g/dL Albumin 3.9 3.2 L (3.5-5.0) g/dL Current Medications Generic Name Dose Route Start Last Admin Trade Name Freq PRN Reason Stop Dose Admin Hydrocodone Bitart/Acetaminophen 1 each 04/19/21 22:45 04/19/21 23:31 Hydrocodone/Apap 10-325mg 1 Each Tab PO 1 each QID RUPALI Administration Alprazolam 0.25 mg 04/19/21 22:30 Alprazolam 0.25 Mg Tab PO BID PRN Anxiety Aspirin 81 mg 04/20/21 09:00 Aspirin 81 Mg PO DAILY [facility] Atorvastatin Calcium 80 mg 04/19/21 22:30 04/19/21 23:31 Atorvastatin 80 Mg Tab PO 80 mg HS [facility] Administration Digoxin 125 mcg 04/20/21 09:00 Digoxin 125 Mcg Tab PO DAILY [facility] Ergocalciferol 1,250 mcg 04/26/21 09:00 Ergocalciferol 1,250 Mcg (50,000 Iu) Capsule PO WE [facility] Fluoxetine HCl 20 mg 04/20/21 09:00 Fluoxetine Hcl 20 Mg Cap PO DAILY [facility] Furosemide 20 mg 04/20/21 09:00 Furosemide 20 Mg Tab PO DAILY [facility] Gabapentin 100 mg 04/19/21 22:45 04/19/21 23:31 Gabapentin 100 Mg Cap PO 100 mg TID [facility] Administration Heparin Sodium (Porcine) 0 unit 04/20/21 02:49 Heparin Sodium 1,000 Un/Ml (10ml Vl) IV PER PROTOCOL PRN Low PTT Protocol Heparin Sodium/Sodium Chloride 250 mls @ 9.998 mls/hr 04/20/21 03:00 04/20/21 03:17 25,000 unit/ Sodium Chloride IV 7.11 units/kg/hr .Q24H RUPALI 9.998 mls/hr Administration Protocol 7.11 UNITS/KG/HR Insulin Aspart 20 unit 04/20/21 07:30 Insulin Aspart (Novolog) 100 Unit/Ml Vial SQ AC-TID [facility] Insulin Human NPH 44 unit 04/20/21 09:00 Insulin Nph 300 Unit/3 Ml Vial SQ DAILY [facility] Ketorolac Tromethamine 1 drops 04/19/21 23:00 04/19/21 23:32 Ketorolac 0.5% Ophth Drops 5 Ml Btl RIGHT EYE 1 drops BID [facility] Administration Levothyroxine Sodium 112 mcg 04/20/21 06:30 04/20/21 06:08 Levothyroxine 112 Mcg Tab PO 112 mcg DAILY@0630 [facility] Administration Lisinopril 10 mg 04/20/21 09:00 Lisinopril 10 Mg Tab PO DAILY [facility] Metoprolol Succinate 50 mg 04/19/21 22:45 04/19/21 23:31 Metoprolol Succinate (Er) 50 Mg Tab.Er.24h PO 50 mg BID RUPALI Administration Naloxone HCl 0.2 mg 04/19/21 21:05 Naloxone 0.4 Mg/Ml 1 Ml Vial IV Q2M PRN Opioid Reversal Nitroglycerin 1 inch 04/20/21 03:00 04/20/21 06:07 Nitroglycerin Oint 1 Inch/Gm Packet TOPICAL Not Given Q6HR [facility] Rivaroxaban 20 mg 04/19/21 22:45 04/19/21 23:31 Rivaroxaban 20 Mg Tab PO 20 mg W/SUPPER RUPALI Administration Protocol Intake and Output 04/19/21 04/20/21 04/20/21 22:59 06:59 14:59 Intake Total 0 Balance 0 Intake: Blood Product 0 Other: Voiding Method Toilet # Voids 1 Weight 140.614 kg 139.4 kg 04/20/21 02:25 04/20/21 02:25
[2021-04-20 10:35] LABS: Basophils % (A) 0 %; Eosinophils # (A) 0.1 k/uL (0-0.7); Eosinophils % (A) 1 %; HCT 43.5 % (39.0-53.0); HGB 13.9 gm/dL (13.0-17.5); Lymphocytes % (A) 24 %; MCH 30.7 pg (25.0-35.0); MCV 95.6 fL (80.0-100.0); Mean Platelet Volume 9.2; Monocytes # (A) 0.4 k/uL (0-1.0); Monocytes % (A) 4 %; Neutrophils # (A) 5.6 k/uL (1.3-7.7); Neutrophils % (A) 68 %; Platelet Count 239 k/uL (150-450); RBC 4.54 m/uL (4.30-5.90); RDW 13.6 % (11.5-15.5); WBC 8.3 k/uL (3.8-10.6)
[2021-04-20 12:07] LABS: Glucose,Whole Blood 177 mg/dL (75-99)
[2021-04-20 17:12] LABS: Glucose,Whole Blood 113 mg/dL (75-99)
--- NOTE | 2021-04-20 18:18 | HP ---
HISTORY AND PHYSICAL This is a 70-year-old white male with noncritical triple-vessel disease, ischemic cardiomyopathy, ejection fraction 45%, status post pacemaker implantation in 2010. He has chronic heart failure with preserved ejection fraction, peripheral vascular disease. He has atrial fibrillation and is on Xarelto. He has insulin-dependent diabetes mellitus, type 2. He came in with atypical chest pain which is similar to his pain he had when he had a heart attack 11 years ago. He had one stent placed at that time. He thinks maybe he has a stent that is blocking. He was sitting at rest when it happened after eating beans. He has no symptoms of nausea or GERD. Pain was similar, as mentioned, with some pressure in his chest like with prior heart attack. He had a sublingual nitroglycerin which was , so it did not really work. He came to the hospital, was placed on heparin, morphine, had mildly elevated troponin. He was seen by a flour worker who is going to do a heart catheterization tomorrow. Past medical history reviewed. See chart. Medications reviewed. See chart. Fourteen- point review of systems otherwise negative. Please see chart. Family history reviewed. See chart. Surgical history. See chart. On physical examination, blood pressure low 100s over 50s, heart rate 60 to 65, saturating 96 on room air. He is giving appropriate answers. He is no acute distress. HEENT: Normocephalic, atraumatic. Heart: S1, S2. Abdomen is soft, non-tender. Extremities have 2+ peripheral pulses. ASSESSMENT: 1. Mildly elevated troponins. 2. Possible qgg-DA-bofspagcs myocardial infarction. 3. Nonobstructive coronary artery disease. 4. Ischemic cardiomyopathy with preserved ejection fraction. 5. Congestive heart failure. 6. Status post biventricular pacemaker implantation. 7. Peripheral vascular disease. 8. Permanent atrial fibrillation. 9. Type 2 diabetes mellitus. He is going to undergo cardiac catheterization tomorrow. Continue on current treatments, including nitroglycerin, morphine, heparin, etc. Prognosis is guarded. Possibly a stent will be needed. Echo will be done. Please see further orders. MMODL / IJN: [id number] /
[2021-04-20 20:19] LABS: Glucose,Whole Blood 154 mg/dL (75-99)
[2021-04-20] MEDS: ATORVASTATIN 80 MG TAB PO SCH (20:19)
[2021-04-21] MEDS ORDERED: SODIUM CHLORIDE 0.9% 1,000 ML in EMPTY BAG 1 BAG IV ONE
[2021-04-21] MEDS: NITROGLYCERIN OINT 1 INCH/GM PACKET TOPICAL SCH (05:45)
[2021-04-21] MEDS: LEVOTHYROXINE 112 MCG TAB PO SCH (05:45)
[2021-04-21] MEDS ORDERED: HEPARIN SODIUM,PORCINE 10,000 UNIT in SODIUM CHLORIDE 0.9% 1,000 ML IRRIGATION PRN (07:00)
[2021-04-21] MEDS ORDERED: HEPARIN SODIUM,PORCINE 2,500 UNIT in SODIUM CHLORIDE 0.9% 250 ML IRRIGATION PRN (07:00)
[2021-04-21] MEDS: INSULIN NPH 300 UNIT/3 ML VIAL SQ SCH (07:09)
[2021-04-21] MEDS: FUROSEMIDE 20 MG TAB PO SCH (07:13)
[2021-04-21 07:19] LABS: HCT 41.5 % (39.0-53.0); HGB 13.1 gm/dL (13.0-17.5); MCH 30.9 pg (25.0-35.0); MCHC 31.6 g/dL (31.0-37.0); MCV 97.7 fL (80.0-100.0); Mean Platelet Volume 9.4; Platelet Count 208 k/uL (150-450); RBC 4.25 m/uL (4.30-5.90); RDW 12.8 % (11.5-15.5); WBC 9.5 k/uL (3.8-10.6)
[2021-04-21] MEDS ORDERED: HEPARIN SODIUM 1,000 UN/ML (10ML VL) ONE (07:22)
[2021-04-21] MEDS ORDERED: LIDOCAINE 1% INJ 10MG/ML (20 ML MDV) ONE (07:22)
[2021-04-21] MEDS ORDERED: VERAPAMIL 2.5 MG/ML 2 ML AMP ONE (07:23)
[2021-04-21 07:24] LABS: Glucose,Whole Blood 254 mg/dL (75-99)
[2021-04-21] MEDS: lisinopriL 10 MG TAB PO SCH (07:24)
[2021-04-21] MEDS: ASPIRIN 81 MG PO SCH (07:24)
[2021-04-21] MEDS: METOPROLOL SUCCINATE (ER) 50 MG TAB.ER.24H PO SCH ×2 (07:24→20:57)
[2021-04-21] MEDS: INSULIN ASPART (NovoLOG) 100 UNIT/ML VIAL SQ SCH ×3 (07:25→19:00)
[2021-04-21 07:40] LABS: African American GFR (CKD) 90 (>60 ml/min/1.73 sqM); Anion Gap 6 mmol/L; Blood Urea Nitrogen 20 mg/dL (9-20); Carbon Dioxide 20 mmol/L (22-30); Chloride 108 mmol/L (98-107); Glucose 262 mg/dL (74-99); Non-African American GFR(CKD) 77 (>60 ml/min/1.73 sqM); Potassium 4.4 mmol/L (3.5-5.1); Sodium 134 mmol/L (137-145)
[2021-04-21] MEDS ORDERED: fentaNYL (PF) 50 MCG/ML 2 ML AMP ONE (07:42)
[2021-04-21] MEDS ORDERED: MIDAZOLAM HCL 10 MG/10 ML VIAL IV ONE (07:50)
[2021-04-21] MEDS ORDERED: LIDOCAINE 1% INJ 10MG/ML (20 ML MDV) SQ ONE (07:50)
[2021-04-21] MEDS: fentaNYL (PF) 50 MCG/ML 2 ML AMP IV ONE ×2 (07:50→09:00)
[2021-04-21] MEDS ORDERED: IV FLUID CONTINUATION 850 ML IV ONE ×2 (07:51)
[2021-04-21] MEDS ORDERED: VERAPAMIL SYRINGE (5 MG/10 ML) INTRAARTER ONE (07:54)
[2021-04-21] MEDS: HEPARIN SODIUM 1,000 UN/ML (10ML VL) IV ONE ×3 (07:58→09:14)
[2021-04-21] MEDS ORDERED: CLOPIDOGREL 75 MG TAB ONE (09:36)
[2021-04-21] MEDS ORDERED: RX INFO: IV CONTRAST WAS GIVEN 1 EACH MISC MISCELLANE PRN (09:40)
[2021-04-21] MEDS ORDERED: MAG HYDROX/AL HYDROX/SIMETH 30 ML CUP PO PRN (09:40)
[2021-04-21] MEDS ORDERED: NITROGLYCERIN SL TABS 0.4 MG TAB SUBLINGUAL PRN (09:40)
[2021-04-21] MEDS ORDERED: ATROPINE SULFATE 0.1 MG/ML 10ML SYRINGE IV PRN (09:40)
[2021-04-21] MEDS ORDERED: IOPAMIDOL-370 125ML BTL INJ ONE (09:41)
[2021-04-21] MEDS ORDERED: CLOPIDOGREL 75 MG TAB PO ONE (09:41)
[2021-04-21] MEDS ORDERED: IOPAMIDOL-370 100ML BTL INJ ONE (09:42)
[2021-04-21] MEDS: HYDROcodone/APAP 10-325MG 1 EACH TAB PO SCH ×4 (10:11→22:21)
[2021-04-21] MEDS: GABAPENTIN 100 MG CAP PO SCH ×3 (10:11→20:57)
[2021-04-21] MEDS: DIGOXIN 125 MCG TAB PO SCH (10:12)
[2021-04-21] MEDS: FLUoxetine HCL 20 MG CAP PO SCH ×2 (10:12→10:13)
[2021-04-21] MEDS: KETOROLAC 0.5% OPHTH DROPS 5 ML BTL RIGHT EYE SCH ×2 (10:13→20:57)
[2021-04-21] MEDS: SODIUM CHLORIDE 0.9% 1,000 ML in EMPTY BAG 1 BAG IV SCH ×15 (10:13→20:56)
--- NOTE | 2021-04-21 10:25 | P.CARDCATH ---
Date of Procedure: 04/21/21 Preoperative Diagnosis: Unstable angina Postoperative Diagnosis: Multivessel disease with critical lesion in the mid LAD Description of Procedure: HISTORY: This is a 70-year-old gentleman with history of known mild coronary artery disease, cardiomyopathy status post biventricular AICD placement who was admitted to the hospital with complaints of chest pain and abnormal troponin values consistent with unstable angina. Patient is advised to have cardiac catheterization for definite diagnosis CONSENT:I have discussed the risks, benefits and alternative therapies for the above-mentioned procedure and for both sedation/analgesia as well as necessary b lood product administration, if indicated, as they pertain to this patient. The patient has indicated understanding and acceptance of the risks and procedures discussed. PROCEDURE: Patient was brought to the lab in a fasting state. Patient was given some IV sedation. The right wrist is infiltrated with lidocaine and right radial artery was entered using Seldinger technique. A 6-Portuguese catheter was left in place and selective coronary arteriography was performed. Patient tolerated the procedure well. TR band was applied for hemostasis. No immediate complications were noted and patient was transferred to [facility] in a stable condition Conscious Sedation: Versed 1mg Fentanyl 50 Duration 23minutes HEMODYNAMICS: The aortic pressure is about 110/70. The left ventricle end- diastolic pressure is about 2-3. There was no gradient across the aortic valve SELECTIVE CORONARY ARTERIOGRAPHY: LEFT MAIN: This is mildly calcified normal length THE LEFT ANTERIOR DESCENDING CORONARY ARTERY:. This is a moderate caliber vessel with diffuse disease involving the ostium at the origin of the diagonal branch with about 50% narrowing. There is also about 70- 80% mid LAD lesion. Beyond that the vessel is small to moderate in caliber without any critical lesions THE LEFT CIRCUMFLEX AND IS CORONARY ARTERY: Is a mo derate caliber vessel giving rise to moderate sized OM branch. Mild disease without any critical lesions THE RIGHT CORONARY ARTERY: This is a dominant vessel with calcification in the proximal and midportion. There is eccentric calcified lesion in the proximal segment close to the ostium. The significance of the lesion is not clear. IFR or IVUS to be done to decide the significance of this lesion. This is being done by Dr. ERVIN Lorenz LEFT VENTRICULOGRAPHY: Not Performed FINAL IMPRESSION: Calcified eccentric lesion in the proximal RCA. IFR being done by Dr. ERVIN Lorenz to decide the significance. There is a critical lesion involving the mid LAD with a moderate disease involving the ostium and also origin of the diagonal PLAN: If IFR of the RCA is normal, proceed with stent placement of mid LAD PROGNOSIS: Guarded
--- NOTE | 2021-04-21 10:53 | PTCA ---
PERCUTANEOUSTRANS CORORONARY ANGIOGRAPHY DATE OF SERVICE: 04/21/2021. PROCEDURE: 1. Percutaneous transluminal coronary angioplasty and stenting of mid LAD with a drug- eluting stent. 2. IFR assessment of proximal RCA stenosis. PERFORMED BY: Dr. Ambrosio Lorenz. Moderate conscious sedation time was 28 minutes. Patient was administered Versed. Oxygen saturation, hemodynamics and EKG were monitored closely. CLINICAL INFORMATION: Mr. Escobar is a 70-year-old gentleman with history of hypertension, diabetes, hyperlipidemia, ischemic cardiomyopathy with ICD. He was seen by Dr. Khan on arrival at the hospital with mild troponin elevation. Cardiac catheterization revealed a calcified lesion in the proximal RCA of intermediate degree, and he also had a mid LAD lesion that was almost 80% eccentric, best seen in the ESTONIAN cranial projection. I reviewed the angiograms, talked to the patient and Dr. Khan, suggested PCI of LAD and IFR of RCA. PROCEDURE NOTE: The existing 6-[place] introducer in the right radial artery was used to perform the procedure. I used a JL3.5 guide catheter to cannulate the left coronary artery. The patient received additional 5500 units of heparin and ACT was 275 or so. A run-through wire was used to cross the lesion. Mid LAD was pre-dilated with a 2.5 caliber 12 mm NC Trek balloon at 12 atmospheres for 20 seconds. I then deployed a 2.75 caliber 15 mm long Xience stent in the mid LAD. Excellent angiographic result was achieved. Subsequently I took the guide and the wire out and switched over to a right Becca type guide catheter to cannulate the right coronary artery. IFR was performed. Using the IFR wire after appropriate calibration and normalization in the aorta, the wire was advanced and positioned in the mid to distal RCA. IFR measurement was performed as per protocol. The IFR turned out to be 0.95 and 0.96, suggesting that this is not a significant lesion. The catheter wire was then taken out. The TR band was applied to secure hemostasis. Saturation in the fingers of the right hand was 96%. Patient received 600 mg of Plavix. Excellent angiographic result without complication was achieved. RCA lesion is not hemodynamically significant. Details of the procedure and results were discussed with the patient and his . I expect he will be discharged tomorrow. Discussed with Dr. Khan. MMODL / IJN: [id number] /
[2021-04-21 11:52] LABS: Glucose,Whole Blood 284 mg/dL (75-99)
[2021-04-21 13:31] VITALS: BMI 39.4
--- NOTE | 2021-04-21 15:54 | PN ---
PROGRESS NOTE This is a 70-year-old gentleman with hypertension, diabetes, dyslipidemia, ischemic cardiomyopathy. He went for heart catheterization today. He had a stent placed in the mid LAD. RCA lesion was not significant that was found on the cardiac catheterization. He will be able to be discharged home tomorrow. He had a mid LAD lesion that went from 80% hopefully down to next to nothing. Medication will be adjusted and he will be able to be discharged home tomorrow. Lungs clear. Cardiovascular S1-S2. Hematology negative Homans. Psych fair mood and affect. Please see further orders. MMODL / IJN: [id number] /
[2021-04-21 17:21] LABS: Glucose,Whole Blood 265 mg/dL (75-99)
[2021-04-21] MEDS: SODIUM CHLORIDE 0.9% 1,000 ML IV SCH (18:56)
[2021-04-21 20:56] LABS: Glucose,Whole Blood 191 mg/dL (75-99)
[2021-04-21] MEDS: ATORVASTATIN 80 MG TAB PO SCH (20:57)
[2021-04-22] MEDS: SODIUM CHLORIDE 0.9% 1,000 ML in EMPTY BAG 1 BAG IV SCH ×7 (00:12→20:52)
[2021-04-22] MEDS: LEVOTHYROXINE 112 MCG TAB PO SCH (05:20)
[2021-04-22 07:37] LABS: Glucose,Whole Blood 261 mg/dL (75-99)
[2021-04-22] MEDS: INSULIN ASPART (NovoLOG) 100 UNIT/ML VIAL SQ SCH ×3 (08:55→17:39)
[2021-04-22] MEDS: INSULIN NPH 300 UNIT/3 ML VIAL SQ SCH (08:55)
[2021-04-22] MEDS: CLOPIDOGREL 75 MG TAB PO SCH (08:57)
[2021-04-22] MEDS: ASPIRIN 81 MG PO SCH (08:57)
[2021-04-22] MEDS: METOPROLOL SUCCINATE (ER) 50 MG TAB.ER.24H PO SCH ×2 (08:57→20:35)
[2021-04-22] MEDS: FUROSEMIDE 20 MG TAB PO SCH (08:57)
[2021-04-22] MEDS: GABAPENTIN 100 MG CAP PO SCH ×3 (08:58→20:36)
[2021-04-22] MEDS: HYDROcodone/APAP 10-325MG 1 EACH TAB PO SCH ×4 (08:58→20:36)
[2021-04-22] MEDS: lisinopriL 10 MG TAB PO SCH (08:58)
[2021-04-22] MEDS: FLUoxetine HCL 20 MG CAP PO SCH (08:59)
[2021-04-22] MEDS: DIGOXIN 125 MCG TAB PO SCH (08:59)
[2021-04-22] MEDS: SODIUM CHLORIDE 0.9% 1,000 ML IV SCH ×2 (10:23→20:22)
[2021-04-22] MEDS: EZETIMIBE 10 MG TAB PO SCH (10:29)
[2021-04-22] MEDS: KETOROLAC 0.5% OPHTH DROPS 5 ML BTL RIGHT EYE SCH ×2 (10:29→20:35)
[2021-04-22 11:51] LABS: Glucose,Whole Blood 326 mg/dL (75-99)
--- NOTE | 2021-04-22 15:30 | DS ---
DISCHARGE SUMMARY 1. Unstable angina. 2. Ischemic cardiomyopathy. 3. [id number]-[id number]-wmxdmopty myocardial infarction. 4. PTCA to the LAD. 5. Acute kidney injury. 6. Acute on chronic systolic CHF. 7. Insulin-dependent diabetes mellitus. 8. Hypertension. 9. Hypothyroidism. 10.Cervical lumbar disk disease. 11.Obesity. 12.Neuropathy. HOME MEDICINES: 1. Metformin 1000 b.i.d. 2. Levothyroxine 112 mcg daily. 3. Xanax 0.25 b.i.d. 4. Aspirin 81 mg daily. 5. Lipitor 80 mg daily. 6. Nitro sublingual p.r.n. 7. Zestril 10 daily. 8. Xolair 225 mg subcutaneously every 14 days. 9. [place] 10/325 q.i.d. 10.Neurontin t.i.d. 11.Digitek 125 mcg daily. 12.Humalog 20 units before meals t.i.d. 13.Toprol-XL 50 b.i.d. 14.Xarelto 20 daily. 15.Prozac 20 daily. 16.Lasix 20 once a day. 17.Vitamin D weekly. 18.Novolin N 44 once a day. CONDITION: Stable. PROGNOSIS: Guarded. Ambulate as tolerated. This 70-year-old white male came to the hospital with unstable angina. for heart disease, similar to chest pain 10 years ago. He underwent heart catheterization that showed an 80% blockage in the LAD, for which a stent was placed. He has a non-critical blockage in the right circumflex that was not fixed. Risk factor modifications, including starting Plavix for about a year and cholesterol, were discussed with the patient. The patient will be discharged home when cleared by Cardiology. MMODL / IJN: [id number] /
--- NOTE | 2021-04-22 16:15 | P.PN ---
Subjective Progress Note Date: 04/22/21 This is Isaak barrera NP, I'm dictating on behalf of Dr. Angela's H&P and A&P. Patient was interviewed and examined. Patient is a pleasant 70-year-old male who initially presented to the hospital with acute chest pain, underwent PCI to the LAD. Patient reports that he is doing fine today. He no longer reports having any chest pain or shortness of breath. States that he feels much better than when he initially came in. GENERAL: Well-appearing, well-nourished and in no acute distress. NECK: Supple without JVD or thyromegaly. LUNGS: Breath sounds clear to auscultation bilaterally. Respiration equal and unlabored. No wheezes, rales or rhonchi. HEART: Regular rate and rhythm without murmurs, rubs or gallops. S1 and S2 heard. EXTREMITIES: Normal range of motion, no edema. No clubbing or cyanosis. Peripheral pulses intact and strong. Right wrist where PCI was completed looks good, no bleeding noted. VITALS: Temp 98.7, pulse 63, respirations 17, blood pressure 137/72, O2 saturation 98% on room air TELEMETRY: Normal sinus rhythm LABS: White count 9.5, hemoglobin 13.1, platelets 208, sodium 134, potassium 4.4, B1 20, creatinine 0.98, IMPRESSION/PLAN: 1. Acute VA- patient had PCI to LAD, is doing well. 2. Diabetes mellitus-recommend better diabetes control. Recommend endocrino logy consult. Check hemoglobin A1c. Lipid panel. Start Zetia 10 mg daily. Objective - Vital Signs Vital signs: Vital Signs Temp 97.6 F 04/22/21 07:12 Pulse 61 04/22/21 07:12 Resp 18 04/22/21 07:12 BP 144/74 04/22/21 07:12 Pulse Ox 97 04/22/21 07:12 Intake & Output 04/21/21 04/22/21 04/22/21 18:59 06:59 18:59 Intake Total 436 Balance 436 Weight 139.4 kg 139.8 kg Intake: IV 200 Oral 236 Other: Voiding Method Toilet Toilet Urinal Urinal # Voids 2 2 # Bowel Movements 0 0 - Labs CBC & Chem 7: 04/21/21 06:33 04/21/21 06:33 Labs: Abnormal Lab Results - Last 24 Hours (Table) 04/21/21 04/21/21 04/21/21 Range/Units 11:48 17:19 20:55 POC Glucose (mg/dL) 284 H 265 H 191 H (75-99) mg/dL 04/22/21 Range/Units 07:36 POC Glucose (mg/dL) 261 H (75-99) mg/dL
[2021-04-22 17:18] LABS: Glucose,Whole Blood 209 mg/dL (75-99)
[2021-04-22 20:28] LABS: Glucose,Whole Blood 180 mg/dL (75-99)
[2021-04-22] MEDS: ATORVASTATIN 80 MG TAB PO SCH (20:35)
[2021-04-23] MEDS: LEVOTHYROXINE 112 MCG TAB PO SCH (05:39)
[2021-04-23 07:19] LABS: Glucose,Whole Blood 225 mg/dL (75-99)
[2021-04-23 07:31] VITALS: BP 144/76; PULSE 62; RESP 19; TEMP 98.1
[2021-04-23] MEDS: INSULIN ASPART (NovoLOG) 100 UNIT/ML VIAL SQ SCH ×2 (08:49→12:50)
[2021-04-23] MEDS: CLOPIDOGREL 75 MG TAB PO SCH (08:49)
[2021-04-23] MEDS: GABAPENTIN 100 MG CAP PO SCH (08:50)
[2021-04-23] MEDS: METOPROLOL SUCCINATE (ER) 50 MG TAB.ER.24H PO SCH (08:50)
[2021-04-23] MEDS: ASPIRIN 81 MG PO SCH (08:50)
[2021-04-23] MEDS: lisinopriL 10 MG TAB PO SCH (08:50)
[2021-04-23] MEDS: DIGOXIN 125 MCG TAB PO SCH (08:50)
[2021-04-23] MEDS: FUROSEMIDE 20 MG TAB PO SCH (08:50)
[2021-04-23] MEDS: FLUoxetine HCL 20 MG CAP PO SCH (08:50)
[2021-04-23] MEDS: EZETIMIBE 10 MG TAB PO SCH (08:50)
[2021-04-23] MEDS: INSULIN NPH 300 UNIT/3 ML VIAL SQ SCH (08:51)
[2021-04-23] MEDS: KETOROLAC 0.5% OPHTH DROPS 5 ML BTL RIGHT EYE SCH (08:53)
[2021-04-23] MEDS: HYDROcodone/APAP 10-325MG 1 EACH TAB PO SCH ×2 (08:55→12:51)
[2021-04-23] MEDS: SODIUM CHLORIDE 0.9% 1,000 ML IV SCH (09:08)
[2021-04-23] MEDS: SODIUM CHLORIDE 0.9% 1,000 ML in EMPTY BAG 1 BAG IV SCH (09:50)
[2021-04-23 11:26] LABS: Glucose,Whole Blood 235 mg/dL (75-99)
[2021-04-25 18:13] LABS: Chol/HDL Ratio 4.97 Ratio; LDL Cholesterol,Calculated 89.2 mg/dL (0.0-131.0)
[2021-04-26] MEDS ORDERED: ERGOCALCIFEROL 1,250 MCG (50,000 IU) CAPSULE PO SCH (09:00)
== END 2021-04-23 14:00 | disposition home or self-care (01) | DRG 247 ==
LOC: EC 18:43 → 6NMEDSUR 21:05 → OBSVTOIN 04-20 12:25
PROVIDERS: ADMIT Family Medicine; ATTEND Family Medicine
PROC: B2111ZZ Fluoroscopy of Multiple Coronary Arteries using Low Osmolar Contrast (ICD-10-PCS; 2021-04-21)
PROC: 027034Z Dilation of Coronary Artery, One Artery with Drug-eluting Intraluminal Device, Percutaneous Approach (ICD-10-PCS; principal; 2021-04-21 07:30)
PROC: 4A033BC Measurement of Arterial Pressure, Coronary, Percutaneous Approach (ICD-10-PCS; 2021-04-21 07:30)
PROC: 4A023N7 Measurement of Cardiac Sampling and Pressure, Left Heart, Percutaneous Approach (ICD-10-PCS; 2021-04-21 07:30)
DX: I21.4 Non-ST elevation (NSTEMI) myocardial infarction (principal); I50.32 Chronic diastolic (congestive) heart failure; I48.21 Permanent atrial fibrillation; I25.110 Atherosclerotic heart disease of native coronary artery with unstable angina pectoris; I25.5 Ischemic cardiomyopathy; E03.9 Hypothyroidism, unspecified; E78.5 Hyperlipidemia, unspecified; E11.51 Type 2 diabetes mellitus with diabetic peripheral angiopathy without gangrene; I11.0 Hypertensive heart disease with heart failure; I34.0 Nonrheumatic mitral (valve) insufficiency; J44.9 Chronic obstructive pulmonary disease, unspecified; I25.84 Coronary atherosclerosis due to calcified coronary lesion; L40.9 Psoriasis, unspecified; I25.2 Old myocardial infarction; Z79.01 Long term (current) use of anticoagulants; Z79.02 Long term (current) use of antithrombotics/antiplatelets; Z79.4 Long term (current) use of insulin; Z79.82 Long term (current) use of aspirin; Z79.890 Hormone replacement therapy; Z79.899 Other long term (current) drug therapy; Z86.73 Personal history of transient ischemic attack (TIA), and cerebral infarction without residual deficits; Z95.0 Presence of cardiac pacemaker; Z83.3 Family history of diabetes mellitus
CPT/HCPCS: 36415; 71046; 80048; 80053; 80061; 80162; 83036; 83690; 83735; 83880; 84443; 84484; 85025; 85027; 85379; 85610; 85730; 93005; 93306; 93458; 93571; 96374; 96375; 99285

== ENCOUNTER 2024-02-26 11:02 | Emergency (ER) | payer MEDICARE, BC ==
--- NOTE | 2024-02-26 11:36 | ED ---
URI HPI - General Chief Complaint: Upper Respiratory Infection Stated Complaint: COVID Time Seen by Provider: 02/26/24 11:35 Source: patient, RN notes reviewed Mode of arrival: wheelchair Limitations: no limitations - History of Present Illness Initial Comments: 73-year-old presented to ER for evaluation of cough, congestion and headache. Patient reports this been ongoing for the past 24 to 48 hours. States he has taken vqgf-ohj-dafnsma Robitussin cough medication without relief. He denies any chest pain, shortness of breath/difficulty breathing, abdominal pain, constipation/diarrhea, urinary complaints or peripheral edema. Patient's is having similar symptoms. No fevers, nausea, vomiting. No other complaints. - Related Data Home Medications Medication Instructions Recorded Confirmed RX: Levothyroxine Sodium 112 mcg PO DAILY 06/29/13 02/26/24 [Synthroid] RX: ALPRAZolam [Xanax] 0.25 mg PO BID PRN 04/13/14 02/26/24 RX: Omalizumab [Xolair] 225 mg SQ Q14D 01/17/16 02/26/24 RX: HYDROcodone/APAP 10-325MG 1 tab PO QID 10/23/16 02/26/24 [Mccrory 10-325] RX: Gabapentin [Neurontin] 100 mg PO TID 08/13/17 02/26/24 RX: Digoxin [Digitek] 125 mcg PO DAILY 07/29/19 02/26/24 RX: Ergocalciferol (Vitamin D2) 1,250 mcg PO WE 04/19/21 02/26/24 [Drisdol (50,000 Iu)] RX: Fluticasone/Vilanterol [Breo 1 puff INHALATION RT-DAILY 11/07/21 02/26/24 Ellipta 100-25 Mcg Inhaler] RX: Insulin NPH Hum/Reg Insulin Hm 60 unit SQ BID 11/07/21 02/26/24 [NovoLIN 70-30 100 Unit/ml Vial] RX: Montelukast [Singulair] 10 mg PO HS 11/07/21 02/26/24 RX: Atorvastatin [Lipitor] 80 mg PO DAILY 03/28/22 02/26/24 Clopidogrel [Plavix] 75 mg PO DAILY 01/15/23 02/26/24 Empagliflozin [Jardiance] 25 mg PO DAILY 02/26/24 02/26/24 Metoprolol Succinate (ER) [Toprol 25 mg PO BID 02/26/24 02/26/24 Xl] PARoxetine HCL [Paxil] 40 mg PO DAILY 02/26/24 02/26/24 RX: lisinopriL 2.5 mg PO DAILY 02/26/24 02/26/24 Rivaroxaban [Xarelto] 15 mg PO DAILY 02/26/24 02/26/24 Previous Rx's Medication Instructions Recorded RX: Ezetimibe [Zetia] 10 mg PO DAILY 90 Days #90 tab 04/22/21 RX: Nitroglycerin Sl Tabs 0.4 mg SUBLINGUAL Q5M PRN tab 03/31/22 [Nitrostat] Oseltamivir [Tamiflu] 75 mg PO Q12HR #10 cap 02/26/24 Allergies Allergy/AdvReac Type Severity Reaction Status Date / Time No Known Allergies Allergy Verified 02/26/24 13:52 Review of Systems ROS Statement: Those systems with pertinent positive or pertinent negative responses have been documented in the HPI. ROS Other: All systems not noted in ROS Statement are negative. Past Medical History Past Medical History: Asthma, Chest Pain / Angina, Heart Failure, COPD, CVA/TIA, Diabetes Mellitus, Hyperlipidemia, Hypertension, Myocardial Infarction (RI), Pneumonia, Skin Disorder, Thyroid Disorder Additional Past Medical History / Comment(s): hypothyroid, psoriasis. RI - 2017 and 2021 Last Myocardial Infarction Date:: 1998 History of Any Multi-Drug Resistant Organisms: None Reported Past Surgical History: Appendectomy, Back Surgery, Cholecystectomy, Heart Catheterization, Orthopedic Surgery, Pacemaker Additional Past Surgical History / Comment(s): BACK SURGERY X3, LEFT ROTATOR CUFF, pacemaker/difb.- 2017 Past Anesthesia/Blood Transfusion Reactions: No Reported Reaction Date of Last Stent Placement:: 04/18/21 Type of Cardiac Device: Unknown Device Placement Date:: 04/18/21 stent placement Past Psychological History: Anxiety, Depression Smoking Status: Never smoker Past Alcohol Use History: None Reported Past Drug Use History: None Reported - Past Family History Mother Family Medical History: Diabetes Mellitus Father Family Medical History: COPD General Exam Limitations: no limitations General appearance: alert, in no apparent distress ENT exam: Present: normal exam, normal oropharynx (Mildly erythematous), mucous membranes moist, TM's normal bilaterally Neck exam: Present: normal inspection. Absent: tenderness, meningismus, lymphadenopathy Respiratory exam: Present: normal lung sounds bilaterally. Absent: respiratory distress, wheezes, rales, rhonchi, stridor Cardiovascular Exam: Present: regular rate, normal rhythm, normal heart sounds. Absent: systolic murmur, diastolic murmur, rubs, gallop, clicks Neurological exam: Present: alert, oriented X3, CN II-XII intact Skin exam: Present: warm, dry, intact, normal color. Absent: rash Course Vital Signs 02/26/24 02/26/24 02/26/24 11:14 12:08 12:40 Temperature 99.7 F H 102.4 F H Pulse Rate 102 H 82 Respiratory 20 18 18 Rate Blood Pressure 127/68 114/70 O2 Sat by Pulse 97 96 Oximetry 02/26/24 13:56 Temperature 101 F H Pulse Rate 85 Respiratory 18 Rate Blood Pressure 118/76 O2 Sat by Pulse 96 Oximetry Medical Decision Making - Medical Decision Making Was pt. sent in by a medical professional or institution (Dr. PA, BIOENGINEER, urgent care, hospital, or care home...) When possible be specific @ -No Did you speak to anyone other than the patient for history (EMS, parent, family, police, friend...)? What history was obtained from this source @ -No Did you review nursing and triage notes (agree or disagree)? Why? @ -I reviewed and agree with nursing and triage notes Were old charts reviewed (outside hosp., previous admission, EMS record, old EKG, old radiological studies, urgent care reports/EKG's, care home records)? Report findings @ -No old charts were reviewed Differential Diagnosis (chest pain, altered mental status, abdominal pain women, abdominal pain men, vaginal bleeding, weakness, fever, dyspnea, syncope, headache, dizziness, GI bleed, back pain, seizure, CVA, palpatations, mental health, musculoskeletal)? @ -Differential Fever:Pneumonia, viral URI, endocarditis, myocarditis, pericarditis, otitis, sinusitis, peritonsillar Abscess, retropharyngeal Abscess, epiglottitis, peritonitis, appendicitis, Fatmata cystitis, diverticulitis, hepatitis, colitis, UTI, PID, TOA, pyelonephritis, prostatitis, epididymitis, meningitis, encephalitis, pulmonary embolism, CVA, thyroid storm, pancreatitis, adrenal crisis, cavernous sinus thrombosis, this is not meant to be an all- inclusive list. EKG interpreted by me (3pts min.). @ -None done X-rays interpreted by me (1pt min.). @ -CXR interpreted me negative for focal consolidations. CT interpreted by me (1pt min.). @ -None done U/S interpreted by me (1pt. min.). @ -None done What testing was considered but not performed or refused? (CT, X-rays, U/S, labs)? Why? @ -None What meds were considered but not given or refused? Why? @ -None Did you discuss the management of the patient with other professionals (professionals i.e. , PA, BIOENGINEER, lab, RT, psych nurse, social and human services assistant, cloth packer, teacher, career services officer, onsite case manager)? Give summary @ -No Was smoking cessation discussed for >3mins.? @ -No Was critical care preformed (if so, how long)? @ -No Were there social determinants of health that impacted care today? How? (Homelessness, low income, unemployed, alcoholism, drug addiction, transportation, low edu. Level, literacy, decrease access to med. care, snf, rehab)? @ -No Was there de-escalation of care discussed even if they declined (Discuss DNR or withdrawal of care, Hospice)? DNR status @ -No What co-morbidities impacted this encounter? (DM, HTN, Smoking, COPD, CAD, Cancer, CVA, ARF, Chemo, Hep., AIDS, mental health diagnosis, sleep apnea, morbid obesity)? @ -None Was patient admitted / discharged? Hospital course, mention meds given and route, prescriptions, significant lab abnormalities, going to OR and other pertinent info. @ -Discharge. 73-year-old male presented to ER for evaluation of cough and congestion. Upon rooming, history and physical exam completed. Vital signs significant for temperature 99.7 F, tachycardia at 102 which are likely related. Vitals otherwise stable. Patient in no signs of acute distress nontoxic- appearing. Viral swabs and chest x-ray will be obtained. Patient given p.o. Tylenol for symptom control in the ER. Influenza A positive. Chest x-ray negative. Patient was started on Tamiflu. Patient is stable for discharge upon reevaluation.. Strict return parameters discussed. Patient discharged in stable condition with follow-up to PCP. Patient verbally expressed understanding and agreement with care plan. Case discussed with ED attending, Dr. Shoemaker. Undiagnosed new problem with uncertain prognosis? @ -No Drug Therapy requiring intensive monitoring for toxicity (Heparin, Nitro, Insulin, Cardizem)? @ -No Were any procedures done? @ -No Diagnosis/symptom? @ -Influenza A/acute viral sinusitis Acute, or Chronic, or Acute on Chronic? @ -Acute Uncomplicated (without systemic symptoms) or Complicated (systemic symptoms)? @ -Uncomplicated Side effects of treatment? @ -No Exacerbation, Progression, or Severe Exacerbation? @ -No Poses a threat to life or bodily function? How? (Chest pain, [place], RI, pneumonia, PE, COPD, DKA, ARF, appy, cholecystitis, CVA, Diverticulitis, Homicidal, Suicidal, threat to staff... and all critical care pts) @ -No - Lab Data Lab Results 02/26/24 Range/Units 11:38 Influenza Type A (PCR) Detected A (Not Detectd) Influenza Type B (PCR) Not Detected (Not Detectd) RSV (PCR) Not Detected (Not Detectd) SARS-CoV-2 (PCR) Not Detected (Not Detectd) - Radiology Data Radiology results: report reviewed, image reviewed Disposition Clinical Impression: Influenza A, Acute viral sinusitis Disposition: HOME SELF-CARE Condition: Stable Instructions (If sedation given, give patient instructions): Fever in Adults (ED), Influenza (ED) Additional Instructions: We received first dose of Tamiflu in the ER. You may take [id number] Tylenol for fever control outpatient. Follow-up with PCP in the next 1 to 2 d ays. Return to the ER for any new or worsening concerns. Prescriptions: Oseltamivir [Tamiflu] 75 mg PO Q12HR #10 cap Is patient prescribed a controlled substance at d/c from ED?: No Referrals: Morales Amin MD [Primary Care Provider] - 1-2 days Time of Disposition: 13:06
[2024-02-26] MEDS: ACETAMINOPHEN TAB 325 MG TAB PO STA ×2 (11:41→13:50)
--- NOTE | 2024-02-26 12:10 | XR ---
EXAMINATION TYPE: XR chest 2V DATE OF EXAM: 02/26/2024 12:02 PM COMPARISON: Chest CT March 29, 2022 CLINICAL INDICATION: Male, 73 years old with history of cough/fever, TECHNIQUE: Frontal and lateral views of the chest are obtained. FINDINGS: There is no focal air space opacity, pleural effusion, or pneumothorax seen. The cardiac silhouette size is upper limits of normal. [employer] pacemaker/defibrillator is redemonstrated. The osseous structures are intact. IMPRESSION: No acute pulmonary process. [facility], , 02/26/2024 12:08 PM
[2024-02-26 12:11] VITALS: RESP 18
[2024-02-26] MEDS: OSELTAMIVIR 75 MG CAP PO STA (13:51)
[2024-02-26 13:58] VITALS: BP 118/76; PULSE 85; TEMP 101
== END 2024-02-26 13:57 | disposition home or self-care (01) ==
LOC: EC 11:02
DX: J10.1 Influenza due to other identified influenza virus with other respiratory manifestations (principal); J01.90 Acute sinusitis, unspecified
CPT/HCPCS: 71046; 87636; 99284

== ENCOUNTER → 2024-03-10 | Outpatient (CLI) | payer MEDICARE, BC ==
[2024-03-10 17:17] LABS: Influenza A Not Detected (Not Detectd); Influenza B Not Detected (Not Detectd); RSV Not Detected (Not Detectd)
== END | disposition home or self-care (01) ==
LOC: LABWHC1 16:23
PROVIDERS: ATTEND Family Medicine
DX: B89 Unspecified parasitic disease (principal)
CPT/HCPCS: 87636

== ENCOUNTER → 2024-05-12 | Outpatient (CLI) | payer MEDICARE, BC ==
[2024-05-12 13:03] LABS: Influenza A Not Detected (Not Detectd); Influenza B Not Detected (Not Detectd); RSV Not Detected (Not Detectd)
== END | disposition home or self-care (01) ==
LOC: LABWHC1 12:00
PROVIDERS: ATTEND Family Medicine
DX: B89 Unspecified parasitic disease (principal)
CPT/HCPCS: 87636